=== PATIENT | male | born 1950 | race Asian ===

== ENCOUNTER 2022-01-03 03:44 | Inpatient (IN) | payer MEDICAID ==
[~2022-01-03] VITALS: Ht 160 cm; Wt 78.0 kg
--- NOTE | 2022-01-03 04:12 | NUR ---
BIBRA C/O BILAT LOWER EXT NUMBNESS AND SWOLLEN FEET. PT AWAKE AND ALERT BUT POOR HISTORIAN. LOWER EXTREMITY EDEMA NOTED BILATERALY. PLACED ON MONITOR AND V/S WNL.PT AFEBRILE AT TRIAGE. MD WAS AT BEDSIDE FOR EVAL.
--- NOTE | 2022-01-03 04:17 | NUR ---
20G IV STARTED AT [facility]. BLOOD DRAWN AND SENT TO LAB
--- NOTE | 2022-01-03 04:20 | NUR ---
EMT AT BEDSIDE FOR EKG
--- NOTE | 2022-01-03 04:25 | NUR ---
XRAY AT BEDSIDE
[2022-01-03] MEDS ORDERED: IV NS 0.9% 1,000 ML BAG IV ONE (04:30)
[2022-01-03 04:44] LABS: BASOPHILS % (AUTO) 0.5 % (0.0-2.0); EOSINOPHILS % (AUTO) 2.8 % (0.0-6.0); HEMATOCRIT 40 % (39-51); HEMOGLOBIN 13.4 g/dL (13.5-17.5); LYMPHOCYTES # (AUTO) 1.9 K/uL (0.8-4.8); LYMPHOCYTES % (AUTO) 25.6 % (20.0-44.0); MEAN CORPUSCULAR HGB CONC 33 g/dl (31.0-36.0); MEAN CORPUSCULAR VOLUME 93 fL (80-96); MONOCYTES # (AUTO) 0.6 K/uL (0.1-1.30); MONOCYTES % (AUTO) 8.4 % (2.0-12.0); NEUTROPHILS # (AUTO) 4.7 K/uL (1.8-8.9); NEUTROPHILS % (AUTO) 62.7 % (43.0-81.0); PLATELET COUNT (AUTO) 231 K/uL (150-450); WHITE BLOOD COUNT (AUTO) 7.4 K/uL (4.3-11.0)
[2022-01-03 04:50] LABS: CALCIUM, SERUM 9.4 mg/dL (8.5-10.1); CARBON DIOXIDE 30 mmol/L (21-32); CHLORIDE 104 mmol/L (98-107); GLUCOSE 113 mg/dL (74-106); POTASSIUM 4.6 mmol/L (3.5-5.1); SODIUM SERUM 141 mmol/L (136-145); UREA NITROGEN, BLOOD 14 mg/dL (7-18)
[2022-01-03 04:54] LABS: ACETAMINOPHEN < 10 ug/ml (10-30)
--- NOTE | 2022-01-03 04:58 | NUR ---
URINE SENT TO LAB
[2022-01-03 05:03] LABS: ALANINE AMINOTRANSFERASE 31 U/L (12-78); ALBUMIN 3.9 g/dL (3.4-5.0); ALKALINE PHOSPHATASE 106 U/L (46-116); ASPARTATE AMINOTRANSFERASE 24 U/L (15-37); BILIRUBIN,DIRECT 0.1 mg/dL (0.0-0.2); BILIRUBIN,TOTAL 0.3 mg/dL (0.2-1.0); TOTAL PROTEIN, SERUM 7.6 g/dL (6.4-8.2)
[2022-01-03 05:30] LABS: THYROID STIMULATING HORMONE 2.634 uIU/mL (0.358-3.74)
--- NOTE | 2022-01-03 05:33 | NUR ---
COVID SWAB SENT TO LAB
[2022-01-03 05:54] LABS: BILIRUBIN,URINE NEGATIVE (NEGATIVE); COLOR,URINE YELLOW (YELLOW); LEUKOCYTE ESTERASE ,URINE NEGATIVE (NEGATIVE); NITRITE, URINE NEGATIVE (NEGATIVE); PROTEIN,URINE NEGATIVE (NEGATIVE); UGLUCOSE NEGATIVE (NEGATIVE); UROBILINOGEN,URINE 0.2 EU/dL (0.2)
[2022-01-03] MEDS ORDERED: CLINDAMYCIN 600 MG in IV D5W 100 ML IV ONE (06:00)
[2022-01-03] MEDS ORDERED: CLINDAMYCIN 900 MG/6 ML VIAL ONE (06:05)
[2022-01-03] MEDS ORDERED: Z GUARD REMEDY 4 OZ OINT TP PRN (08:30)
[2022-01-03] MEDS ORDERED: ONDANSETRON HCL/PF 4 MG/2 ML VIAL IVP PRN (08:30)
[2022-01-03] MEDS ORDERED: ACETAMINOPHEN 325 MG TABLET PO PRN (08:30)
[2022-01-03] MEDS ORDERED: MAGNESIUM HYDROXIDE 30 ML UDC PO PRN (08:30)
[2022-01-03] MEDS ORDERED: HYDROCODONE/APAP 5/325MG TABLET PO PRN (08:30)
--- NOTE | 2022-01-03 08:45 | NUR ---
claude hansen at bedside
[2022-01-03] MEDS: CEFTRIAXONE 2 G in IV D5W 100 ML IV SCH (09:00)
[2022-01-03] MEDS ORDERED: VANCOMYCIN 1.25 GM in IV D5W 250 ML IV ONE (09:00)
--- NOTE | 2022-01-03 09:46 | NUR ---
room ready 327-2
--- NOTE | 2022-01-03 09:57 | NUR ---
report given to sadaf BERKOWITZ , pt. ok to transfer
--- NOTE | 2022-01-03 11:08 | NUR ---
PT MOVED TO ROOM SAFELY WITH VANCOMICIN INFUSING AT 125ML/HR NURSE MADE AWARE
--- NOTE | 2022-01-03 11:15 | NUR ---
RN MS NOTES RECEIVED PT FROM E.R. STAFF VIA IZAIAH, PT IS AWAKE, ALERT AND ORIENTED, NOT IN PAIN AT THIS TIME, NOT IN DISTRESS, ON ROOM AIR, ROOM SET UP ORIENTATION PROVIDED TO PT, VERBALIZED UNDERSTANDING, NOTED WOUNDS AND SWELLING ON BLE'S, NEEDS ATTENDED.
--- NOTE | 2022-01-03 12:00 | NUR ---
RN MS NOTES PT SEEN AND EXAMINED BY DR. LOBO, PLAN OF CARE DISCUSSED WITH PT, VERBALIZED UNDERSTANDING, ORDERS GIVEN, NOTED AND CARRIED OUT, PER PT HE WANTS TO BE DNR/DNI, MD INFORMED, CODE STATUS ORDERED.
--- NOTE | 2022-01-03 13:00 | NUR ---
RN MS NOTES PT REFUSED WOUND DRESSING AND STATED THAT HE IS OK LIKE THAT.
--- NOTE | 2022-01-03 18:58 | NUR ---
RN MS NOTES PT IN BED, RESTING, NO COMPLAINT OF PAIN, NOT IN DISTRESS, PT ABLE TO USE WALKER SAFELY, PT ABLE TO FOLLOW CUES, REMINDED PT TO BE CAREFUL WHEN USING WALKER, ASSISTED WITH URINAL USE, ALL NEEDS ATTENDED.
--- NOTE | 2022-01-03 19:55 | NUR ---
RN OPENING NOTES; PT RECEIVED IN BED AAOX4 ABLE TO MAKE NEEDS KNOWN,ON RM AIR MARCUS WELL,NO SIGN SOB/DISTRESS NOTED,NO COMPLAIN FOR PAIN/DISCOMFORT AT THIS TIME,IV ACCESS ON RAC 20G PATENT AND INTACT,SAFETY MEASURE IN PLACE,CALL LIGHT WITHIN REACH,WILL CONTINUE TO MONITOR.
[2022-01-03 20:00] VITALS: BP 120/64
[2022-01-03] MEDS: VANCOMYCIN 1 GM in IV D5W 250ml IV SCH (20:18)
--- NOTE | 2022-01-04 06:05 | NUR ---
RN CLOSING NOTE; PT IN BED AAOX3,MARCUS WELL ON RM AIR NO SIGN SOB/DISTRESS NOTED,NO COMPLAIN FOR PAIN/DISCOMFORT DURING SHIFT,DUE MEDS GIVEN ORDER,ALL NEEDS ATTENDED,,IV ACCESS ON RT WRIST 18G INTACT AND PATENT,SAFETY MEASURE IN PLACE,CALL LIGHT WITHIN REACH,WILL ENDORSED TO NEXT SHIFT.
[2022-01-04 07:00] VITALS: BP 127/75
[2022-01-04 07:54] LABS: CALCIUM, SERUM 8.6 mg/dL (8.5-10.1); CREATININE 0.8 mg/dL (0.6-1.3); MAGNESIUM 2.6 mg/dL (1.8-2.4); PHOSPHORUS 4.3 mg/dL (2.5-4.9); POTASSIUM 4.1 mmol/L (3.5-5.1)
--- NOTE | 2022-01-04 08:07 | NUR ---
RN OPENING NOTES; PT RECEIVED IN BED AAOX4 ABLE TO MAKE NEEDS KNOWN, ON RM, WITH NO SIGN SOB/DISTRESS NOTED. NO COMPLAIN OF PAIN/DISCOMFORT AT THIS TIME,IV ACCESS ON RAC 20G PATENT AND INTACT,SAFETY MEASURE IN PLACE,CALL LIGHT WITHIN REACH,WILL CONTINUE TO MONITOR.
--- NOTE | 2022-01-04 08:15 | NUR ---
MS RN NOTES: ENDORSED TO KYM BERKOWITZ FOR VANESA.
[2022-01-04] MEDS: CEFTRIAXONE 2 G in IV D5W 100 ML IV SCH (08:51)
[2022-01-04] MEDS: PANTOPRAZOLE 40 MG TABLET.DR PO SCH (09:02)
[2022-01-04 09:11] LABS: BASOPHILS % (AUTO) 0.3 % (0.0-2.0); EOSINOPHILS % (AUTO) 2.4 % (0.0-6.0); HEMATOCRIT 39 % (39-51); HEMOGLOBIN 13.1 g/dL (13.5-17.5); LYMPHOCYTES # (AUTO) 1.6 K/uL (0.8-4.8); LYMPHOCYTES % (AUTO) 20.5 % (20.0-44.0); MEAN CORPUSCULAR HGB CONC 33 g/dl (31.0-36.0); MEAN CORPUSCULAR VOLUME 95 fL (80-96); MONOCYTES # (AUTO) 0.7 K/uL (0.1-1.30); MONOCYTES % (AUTO) 8.4 % (2.0-12.0); NEUTROPHILS # (AUTO) 5.5 K/uL (1.8-8.9); NEUTROPHILS % (AUTO) 68.4 % (43.0-81.0); PLATELET COUNT (AUTO) 235 K/uL (150-450); RED BLOOD CELL COUNT(AUTO) 4.15 MIL/uL (4.5-6.0); WHITE BLOOD COUNT (AUTO) 8.1 K/uL (4.3-11.0)
[2022-01-04] MEDS: VANCOMYCIN 1 GM in IV D5W 250ml IV SCH ×2 (10:54→21:46)
--- NOTE | 2022-01-04 19:00 | NUR ---
MS RN CLOSING NOTES PATIENT LAYING IN BED, A/O X 4, ABLE TO MAKE NEEDS KNOWN, TOLERATING WELL ON ROOM AIR WITH NO S/S RESPIRATORY DISTRESS. NO COMPLAINTS OF PAIN OR DISCOMFORT. R AC # 20 G SL CLEAN, INTACT, AND FLUSHING WELL. SAFETY MEASURES IN PLACE: BED IN LOWEST LOCKED POSITION, SIDE RAILS UP X 2, CALL LIGHT WITHIN REACH. ALL NEEDS MET. WILL ENDORSE TO CARPET MEASURER FOR VANESA.
--- NOTE | 2022-01-04 19:10 | NUR ---
MS RN OPENING NOTES RECEIVED PT IN BED WATCHING TV. PATIENT HAS AN IV ACCESS AT HIS RIGHT AC,. FLUSHED WITH NS, LEAKING. REMOVED THE CATHETER, AND INSERT A NEW IV ACCESS AT HIS LEFT HAND, #20G . PATIENT IS ON RA, TOLERATES WELL. NO S/S OF SOB OR RESPIRATORY DISTRESS. NEW IV SITE IS CLEAN , DRY, AND INTACT. SAFETY MEASURE IN PLACE: BED IN LOWEST POSITION, LOCKED; BED ALARM ACTIVATED, CALL HARO IN REACH, BED SIDE TABLE AND WATER ARE IN REACH. WILL CMONITOR PATIENT'S CONDITION AND PROVIDE PATIENT'S NEEDS.
[2022-01-04 20:00] VITALS: BP 114/56
[2022-01-05 07:00] VITALS: BP 120/75
--- NOTE | 2022-01-05 07:00 | NUR ---
MS RN OPENING NOTES PATIENT LAYING IN BED, A/O X 3, ABLE TO MAKE NEEDS KNOWN, TOLERATING WELL ON ROOM AIR WITH NO S/S RESPIRATORY DISTRESS. L HAND # 20 G SL CLEAN, INTACT, AND FLUSHING WELL. SAFETY MEASURES IN PLACE: BED IN LOWEST LOCKED POSITION, SIDE RAILS UP X 2, CALL LIGHT WITHIN REACH. WILL CONTINUE TO MONITOR.
[2022-01-05 07:07] LABS: BASOPHILS % (AUTO) 0.2 % (0.0-2.0); EOSINOPHILS % (AUTO) 1.7 % (0.0-6.0); HEMATOCRIT 39 % (39-51); LYMPHOCYTES # (AUTO) 1.5 K/uL (0.8-4.8); LYMPHOCYTES % (AUTO) 17.8 % (20.0-44.0); MEAN CORPUSCULAR HGB CONC 33 g/dl (31.0-36.0); MEAN CORPUSCULAR VOLUME 94 fL (80-96); MONOCYTES # (AUTO) 0.8 K/uL (0.1-1.30); NEUTROPHILS # (AUTO) 6.1 K/uL (1.8-8.9); NEUTROPHILS % (AUTO) 71.3 % (43.0-81.0); PLATELET COUNT (AUTO) 230 K/uL (150-450); RED BLOOD CELL COUNT(AUTO) 4.14 MIL/uL (4.5-6.0); WHITE BLOOD COUNT (AUTO) 8.6 K/uL (4.3-11.0)
[2022-01-05 07:12] LABS: BILIRUBIN,TOTAL 0.5 mg/dL (0.2-1.0); CALCIUM, SERUM 8.7 mg/dL (8.5-10.1); MAGNESIUM 2.3 mg/dL (1.8-2.4); PHOSPHORUS 4.3 mg/dL (2.5-4.9); POTASSIUM 4.1 mmol/L (3.5-5.1); TOTAL PROTEIN, SERUM 6.5 g/dL (6.4-8.2)
--- NOTE | 2022-01-05 07:25 | NUR ---
MS RN CLOSING NOTES PT IS IN BED SLEEPING. PATIENT IS ON RA, TOLERATES WELL. NO S/S OF SOB OR RESPIRATORY DISTRESS. IV ACCESS IS ON LEFT HAND, #20G, SL. IV SITE IS CLEAN , DRY, AND INTACT. SAFETY MEASURE IN PLACE: BED IN LOWEST POSITION, LOCKED; BED ALARM ACTIVATED, CALL HARO IN REACH, BED SIDE TABLE AND WATER ARE IN REACH. WILL ENDORSE NEXT SHFT NURSE FOR CONTINUING PATIENT CARE.
[2022-01-05] MEDS: THERAHONEY GEL 1.5 OZ TUBE TP SCH (08:52)
[2022-01-05] MEDS: PANTOPRAZOLE 40 MG TABLET.DR PO SCH (08:52)
[2022-01-05] MEDS: CEFTRIAXONE 2 G in IV D5W 100 ML IV SCH (08:52)
[2022-01-05 12:00] VITALS: BP 100/65
[2022-01-05 16:00] VITALS: BP 100/65
[2022-01-05] MEDS: risperiDONE 1 MG TABLET PO SCH (16:12)
--- NOTE | 2022-01-05 19:00 | NUR ---
MS RN CLOSING NOTES PATIENT LAYING IN BED, A/O X 3, ABLE TO MAKE NEEDS KNOWN, TOLERATING WELL ON ROOM AIR WITH NO S/S RESPIRATORY DISTRESS. L HAND # 20 G SL INTACT AND FLUSHING WELL. SAFETY MEASURES IN PLACE: BED IN LOWEST LOCKED POSITION, SIDE RAILS UP X 2, CALL LIGHT WITHIN REACH. ALL NEEDS MET. WILL ENDORSE TO EDGE DYER FOR VANESA.
--- NOTE | 2022-01-05 19:30 | NUR ---
RN OPENING NOTE PATIENT IN BED, SITTING UP. PATIENT IS ABLE TO MAKE NEEDS KNOWN A/OX 2-3 AT THIS TIME, PATIENT IS ABLE TO MAKE NEEDS KNOWN. PATIENT'S TAYLOR FEET WRAPPED IN DRESSING, C/D/I. PATIENT IS ON RA, TOLERATING WELL, NO SOB NOTED. PATIENT'S L HAND 22 G IV ACCESS INFILTRATED, WILL INSERT NEW IV ACCESS. PATIENT DOES NOT REPORT ANY PAIN AT THIS TIME. PATIENT NOT IN ANY APPARENT DISTRESS. SAFETY MEASURES IN PLACE: BED LOCKED AND IN LOWEST POSITION, CALL LIGHT WITHIN REACH, SIDE RAILS UP. WILL MONITOR PATIENT CLOSELY.
--- NOTE | 2022-01-05 20:30 | NUR ---
R HAND 22 G INSERTED FLUSHING WELL WITH NS.
[2022-01-05] MEDS: VANCOMYCIN 0.75 GM in IV D5W 250 ML IV SCH (20:38)
[2022-01-05 20:52] VITALS: BP 102/59
[2022-01-06 05:11] VITALS: BP 113/67
--- NOTE | 2022-01-06 05:27 | NUR ---
PATIENT REFUSING DRESSING ON TAYLOR FEET TO BE CHANGED AT THIS TIME, STATES "AFTER EATING BREAKFAST YOU CAN CHANGE". INFORMED PATIENT THAT WE NEED TO TAKE PHOTOS OF HIS WOUNDS TO SEE THE WOUND'S PROGRESS AND THAT WE NEED TO CHECK THE REST OF HIS BODY FOR ANY SKIN ISSUES. PATIENT STILL REFUSING SAYING "NO NO NO, IT'S OKAY, LATER". INFORMED PATIENT THAT DAY SHIFT NURSE WOULD HAVE TO DO DRESSING SINCE I WOULD NO LONGER BE WORKING. PATIENT UNDERSTOOD.
[2022-01-06 07:21] LABS: BASOPHILS % (AUTO) 0.2 % (0.0-2.0); EOSINOPHILS % (AUTO) 2.1 % (0.0-6.0); HEMATOCRIT 38 % (39-51); LYMPHOCYTES # (AUTO) 1.1 K/uL (0.8-4.8); LYMPHOCYTES % (AUTO) 14.2 % (20.0-44.0); MEAN CORPUSCULAR HGB CONC 34 g/dl (31.0-36.0); MEAN CORPUSCULAR VOLUME 94 fL (80-96); MONOCYTES # (AUTO) 0.6 K/uL (0.1-1.30); MONOCYTES % (AUTO) 8.2 % (2.0-12.0); NEUTROPHILS # (AUTO) 5.9 K/uL (1.8-8.9); NEUTROPHILS % (AUTO) 75.3 % (43.0-81.0); PLATELET COUNT (AUTO) 223 K/uL (150-450); RED BLOOD CELL COUNT(AUTO) 4.08 MIL/uL (4.5-6.0); WHITE BLOOD COUNT (AUTO) 7.8 K/uL (4.3-11.0)
[2022-01-06 07:30] LABS: CALCIUM, SERUM 8.5 mg/dL (8.5-10.1); CREATININE 0.9 mg/dL (0.6-1.3); MAGNESIUM 2.5 mg/dL (1.8-2.4); PHOSPHORUS 4.1 mg/dL (2.5-4.9); POTASSIUM 4.1 mmol/L (3.5-5.1)
--- NOTE | 2022-01-06 07:34 | NUR ---
RN CLOSING NOTE PATIENT BROUGHT TO BSC DURING CHANGE OF SHIFT, X1 BM. REMINDED PATIENT REGARDING FALL SAFETY MEASURES AND NOT TO GET UP BY HIMSELF. PATIENT IS ABLE TO MAKE NEEDS KNOWN A/OX 2-3 AT THIS TIME. PATIENT'S TAYLOR FEET WRAPPED IN DRESSING, C/D/I. INFORMED DAY SHIFT RN REGARDING CHANGING THE DRESSINGS. PATIENT IS ON RA, TOLERATING WELL, NO SOB NOTED. PATIENT'S R HAND 22 G IV ACCESS PATENT AND INTACT. PATIENT DOES NOT REPORT ANY PAIN AT THIS TIME. PATIENT NOT IN ANY APPARENT DISTRESS. SAFETY MEASURES IN PLACE: BED LOCKED AND IN LOWEST POSITION, CALL LIGHT WITHIN REACH, SIDE RAILS UP. ALL NEEDS MET AND ATTENDED. ALL ORDERS CARRIED OUT. ENDORSED TO DAY SHIFT NURSE FOR VANESA.
[2022-01-06 08:36] VITALS: BP 106/70
[2022-01-06] MEDS: PANTOPRAZOLE 40 MG TABLET.DR PO SCH (09:13)
[2022-01-06] MEDS: risperiDONE 1 MG TABLET PO SCH ×2 (09:16→16:09)
--- NOTE | 2022-01-06 09:27 | NUR ---
WOUND CARE CONSULT: RECEIVED CONSULT FOR LOWER EXTREMITY WOUND, PRESENT ON ADMISSION. PT FOLLOWED BY PODIATRY. WILL DEFER TO DPM FOR WOUND TREATMENT PLAN. DISCUSSED SKIN PROTECTION WITH NURSING STAFF. WILL SEE PRN.
[2022-01-06] MEDS: VANCOMYCIN 0.75 GM in IV D5W 250 ML IV SCH ×2 (10:01→10:18)
[2022-01-06] MEDS: THERAHONEY GEL 1.5 OZ TUBE TP SCH (10:18)
[2022-01-06] MEDS: CEFTRIAXONE 2 G in IV D5W 100 ML IV SCH (10:32)
--- NOTE | 2022-01-06 16:11 | NUR ---
patient refused for wound care, patient stated one more day to have it change.
[2022-01-06 16:20] VITALS: BP 89/46
--- NOTE | 2022-01-06 19:35 | NUR ---
MS RN OPENING NOTE RECEIVED PATIENT IN BED, SITTING UP. PATIENT IS A/O X 3, ABLE TO MAKE NEEDS KNOWN. PATIENT'S TAYLOR FEET WRAPPED IN DRESSING, C/D/I. PATIENT IS ON RA, TOLERATING WELL, NO SOB NOTED. IV ACCESS TO RIGHT WRIST 22 G, INTACT, AND PATENT. PATIENT DOES NOT REPORT ANY PAIN AT THIS TIME. PATIENT NOT IN ANY APPARENT DISTRESS. SAFETY MEASURES IN PLACE: BED LOCKED AND IN LOWEST POSITION, CALL LIGHT WITHIN REACH, SIDE RAILS UP X2. WILL CONTINUE TO MONITOR PATIENT.
[2022-01-06 20:00] VITALS: BP 114/63
--- NOTE | 2022-01-06 20:35 | NUR ---
RN CLOSING NOTE PATIENT A/O X 2-3, ABLE TO MAKE NEEDS KNOWN. PATIENT'S FEET WRAPPED IN DRESSING, PATIENT'S R HAND 22 G IV ACCESS PATENT AND INTACT. PATIENT DOES NOT REPORT ANY PAIN AT THIS TIME. PATIENT NOT IN ANY APPARENT DISTRESS. SAFETY MEASURES IN PLACE: BED LOCKED AND IN LOWEST POSITION, CALL LIGHT WITHIN REACH, SIDE RAILS UP. APPROACHED PATIENT A COUPLE OF TIMES TO CHANGE DRESSING HOWEVER THE PATIENT KEEPS ON REFUSING. ALL NEEDS MET AND ATTENDED. ALL ORDERS CARRIED OUT. ENDORSED TO DAY NIGHT NURSE FOR VANESA.
--- NOTE | 2022-01-07 07:25 | NUR ---
MS RN CLOSING NOTE LEFT PATIENT IN BED, AWAKE. PATIENT IS A/O X 3, ABLE TO MAKE NEEDS KNOWN. PATIENT'S TAYLOR FEET WRAPPED IN DRESSING, C/D/I. PATIENT IS ON RA, TOLERATING WELL, NO SOB NOTED. IV ACCESS TO RIGHT WRIST 22 G, INTACT, AND PATENT. PATIENT DOES NOT REPORT ANY PAIN AT THIS TIME. PATIENT NOT IN ANY APPARENT DISTRESS. SAFETY MEASURES IN PLACE: BED LOCKED AND IN LOWEST POSITION, CALL LIGHT WITHIN REACH, SIDE RAILS UP X2. ENDORSED PATIENT TO AM SHIFT NURSE FOR VANESA. .
--- NOTE | 2022-01-07 07:40 | NUR ---
MS RN OPENING NOTE RECEIVED PATIENT IN BED, A/O X 3, ABLE TO MAKE NEEDS KNOWN. PATIENT'S TAYLOR FEET WRAPPED IN NORMAN DRESSING, C/D/I, PATIENT REFUSED WOUND TREATMENT PER NIGHT NURSE, PT INFORMED THAT HE IS OKAY TO GET IT THIS MORNING, ON RA, TOLERATING WELL, NO SOB NOTED. IV ACCESS TO RIGHT WRIST 22 G, INTACT, AND PATENT. PATIENT DENIES ANY PAIN AT THIS TIME NO DISTRESS NOTED, SAFETY MEASURES IN PLACE: BED LOCKED AND IN LOWEST POSITION, CALL LIGHT WITHIN REACH, SIDE RAILS UP X2. WILL CONTINUE TO MONITOR PATIENT
[2022-01-07 07:45] LABS: CALCIUM, SERUM 8.6 mg/dL (8.5-10.1); CREATININE 0.9 mg/dL (0.6-1.3); POTASSIUM 4.2 mmol/L (3.5-5.1)
[2022-01-07 08:00] VITALS: BP 114/74
[2022-01-07] MEDS: PANTOPRAZOLE 40 MG TABLET.DR PO SCH (08:14)
[2022-01-07] MEDS: risperiDONE 1 MG TABLET PO SCH ×2 (08:22→17:06)
[2022-01-07] MEDS: CEFTRIAXONE 2 G in IV D5W 100 ML IV SCH (08:26)
[2022-01-07] MEDS: VANCOMYCIN 0.75 GM in IV D5W 250 ML IV SCH ×2 (09:20→20:30)
[2022-01-07] MEDS: THERAHONEY GEL 1.5 OZ TUBE TP SCH (09:20)
--- NOTE | 2022-01-07 10:00 | NUR ---
RN NOTES PATIENT PULLED IV LINE, NO ACTIVE BLEEDING NOTED.
--- NOTE | 2022-01-07 11:23 | NUR ---
Advanced Directive: SW was notified by pt.'s partner, Deni Ruiz [phone] that pt. would like to complete Advanced Directive. SW was notified by partner that the pt. is primarily Divehi speaking. SW met with pt. at bedside. SW used roll out manager: [phone]. However, client stated to me and to the roll out manager that he would like to answer questions in Serbian and roll out manager to only assist as needed. The pt. is alert & oriented x 4 and makes good eye contact. The pt. confirmed that his partner is Deni Ruiz [phone] who was also at bedside. SW explained the purpose of an advanced directive how to complete it and that it must be signed by two witnesses or a public notary. SW provided number for mobile notary. Pt. expressed understanding. Patient stated that he does not want to fill out an advanced directive at this time. SW provided advanced healthcare directive to pt. and told him he can take his time to read it over decide if that is something he would like to complete and who he would want to make decisions on his behalf in the event that he can no longer make decisions for himself. Pt. nodded "yes". SW asked if he or his partner had any questions and both nodded "no". Partner stated that the reason for the advanced directive was so that he would receive updates regarding his health condition. SW as pt. if he would like his partner to be informed of his medical information as it is confidential but if he gives verbal consent we can document this. Pt. stated "yes". Patient's partner met with SW outside of the room and stated that he was concerned wether pt. understood everything discussed. Per Deni, he believe the client is prideful and does not want to use impregnating helper as he wants to be independent with communication. SW reminded Deni that the pt. declined to use roll out manager services and SW must respect pt.'s self determination. Deni is and cannot speak Divehi. SW asked if Deni wanted SW to call roll out manager again and Deni declined. SW told Deni that pt. answered questions correctly so the pt. is able to understand Serbian to some degree. SW encouraged Deni and pt.'s family to review advanced directive with client. Deni was agreeable. SW will be available as needed.
--- NOTE | 2022-01-07 11:30 | NUR ---
RN NOTES - TWIN MAIN PARTNER IS WITH CRISTINA AT BEDSIDE, CRISTINA IS WORKING WITH THE ADVANCE DIRECTIVE DOCUMENTS, CRISTINA MENTIONED THAT IT TWIN IS OKAY TO BE THE MAIN ELEVATOR OPERATOR SERVICE PT GAVE CONSENTS. WILL ENDORSE TO SENIOR CYBER SECURITY ANALYST.
[2022-01-07 16:00] VITALS: BP 106/60
--- NOTE | 2022-01-07 17:47 | NUR ---
RN NOTES - IV LINE INSERTED ON LEFT FOREARM G#20, PATENT, INTACT, FLUSHING WELL.
--- NOTE | 2022-01-07 19:20 | NUR ---
MS RN CLOSING NOTE PATIENT IN BED, A/O X 3, ABLE TO MAKE NEEDS KNOWN. PATIENT'S BILATERAL FEET WRAPPED IN NORMAN DRESSING, C/D/I, WOUND TREATMENT PROVIDED. ON RA, TOLERATING WELL, NO SOB NOTED. IV ACCESS TO LEFT FOREARM 20 G, SL, INTACT, AND PATENT. PATIENT DENIES ANY PAIN AT THIS TIME NO DISTRESS NOTED. ALL NEEDS MET, ALL DUE MEDS GIVEN, SAFETY MEASURES MAINTAINED: BED LOCKED AND IN LOWEST POSITION, CALL LIGHT WITHIN REACH, SIDE RAILS UP X2. ENDORSED TO VINEYARD TENDER NURSE.
--- NOTE | 2022-01-07 19:53 | NUR ---
RN OPENING NOTES; PT RECEIVED IN BED AAOX4 ABLE TO MAKE NEEDS KNOWN,ON RM AIR MARCUS WELL,NO SIGN SOB/DISTRESS NOTED,NO COMPLAIN FOR PAIN/DISCOMFORT AT THIS TIME,IV ACCESS ON RAC 18G PATENT AND INTACT,SAFETY MEASURE IN PLACE,CALL LIGHT WITHIN REACH,WILL CONTINUE TO MONITOR.
[2022-01-07 20:00] VITALS: BP 105/55
--- NOTE | 2022-01-08 06:24 | NUR ---
RN CLOSING NOTE; PT IN BED AAOX3,MARCUS WELL ON RM AIR NO SIGN SOB/DISTRESS NOTED,NO COMPLAIN FOR PAIN/DISCOMFORT DURING SHIFT,DUE MEDS GIVEN ORDER,ALL NEEDS ATTENDED,,IV ACCESS ON LT WRIST 20G INTACT AND PATENT,SAFETY MEASURE IN PLACE,CALL LIGHT WITHIN REACH,WILL ENDORSED TO NEXT SHIFT.
[2022-01-08 07:20] LABS: BASOPHILS % (AUTO) 0.2 % (0.0-2.0); HEMATOCRIT 39 % (39-51); HEMOGLOBIN 12.8 g/dL (13.5-17.5); LYMPHOCYTES # (AUTO) 1.3 K/uL (0.8-4.8); LYMPHOCYTES % (AUTO) 19.5 % (20.0-44.0); MEAN CORPUSCULAR HGB CONC 33 g/dl (31.0-36.0); MEAN CORPUSCULAR VOLUME 94 fL (80-96); MONOCYTES # (AUTO) 0.6 K/uL (0.1-1.30); MONOCYTES % (AUTO) 8.8 % (2.0-12.0); NEUTROPHILS # (AUTO) 4.5 K/uL (1.8-8.9); NEUTROPHILS % (AUTO) 68.5 % (43.0-81.0); PLATELET COUNT (AUTO) 243 K/uL (150-450); RED BLOOD CELL COUNT(AUTO) 4.12 MIL/uL (4.5-6.0); WHITE BLOOD COUNT (AUTO) 6.5 K/uL (4.3-11.0)
[2022-01-08 08:00] VITALS: BP 143/56
[2022-01-08 08:18] LABS: CALCIUM, SERUM 9.1 mg/dL (8.5-10.1); MAGNESIUM 2.4 mg/dL (1.8-2.4); PHOSPHORUS 3.8 mg/dL (2.5-4.9); POTASSIUM 4.1 mmol/L (3.5-5.1)
[2022-01-08] MEDS: THERAHONEY GEL 1.5 OZ TUBE TP SCH (09:00)
[2022-01-08] MEDS: CEFTRIAXONE 2 G in IV D5W 100 ML IV SCH (09:35)
[2022-01-08] MEDS: VANCOMYCIN 0.75 GM in IV D5W 250 ML IV SCH (09:36)
[2022-01-08] MEDS: PANTOPRAZOLE 40 MG TABLET.DR PO SCH (09:36)
[2022-01-08] MEDS: risperiDONE 1 MG TABLET PO SCH ×2 (09:36→17:52)
[2022-01-08] MEDS: ZOSYN IVPB 3.375 G in IV D5W 50ml IV SCH ×2 (13:00→19:09)
[2022-01-08 16:00] VITALS: BP 119/64
[2022-01-08 20:00] VITALS: BP 130/56
[2022-01-09] MEDS: ZOSYN IVPB 3.375 G in IV D5W 50ml IV SCH ×4 (00:26→18:12)
[2022-01-09 07:04] LABS: BASOPHILS % (AUTO) 0.3 % (0.0-2.0); HEMATOCRIT 38 % (39-51); HEMOGLOBIN 12.5 g/dL (13.5-17.5); LYMPHOCYTES # (AUTO) 1.2 K/uL (0.8-4.8); LYMPHOCYTES % (AUTO) 19.9 % (20.0-44.0); MEAN CORPUSCULAR HGB CONC 33 g/dl (31.0-36.0); MEAN CORPUSCULAR VOLUME 94 fL (80-96); MONOCYTES # (AUTO) 0.5 K/uL (0.1-1.30); MONOCYTES % (AUTO) 7.8 % (2.0-12.0); NEUTROPHILS # (AUTO) 4.2 K/uL (1.8-8.9); PLATELET COUNT (AUTO) 239 K/uL (150-450); RED BLOOD CELL COUNT(AUTO) 4.02 MIL/uL (4.5-6.0); WHITE BLOOD COUNT (AUTO) 6.1 K/uL (4.3-11.0)
[2022-01-09 08:04] LABS: CREATININE 1.2 mg/dL (0.6-1.3); MAGNESIUM 2.4 mg/dL (1.8-2.4); PHOSPHORUS 4.7 mg/dL (2.5-4.9); POTASSIUM 4.2 mmol/L (3.5-5.1)
[2022-01-09] MEDS: risperiDONE 1 MG TABLET PO SCH ×2 (08:23→17:53)
[2022-01-09] MEDS: PANTOPRAZOLE 40 MG TABLET.DR PO SCH (08:23)
[2022-01-09 08:30] VITALS: BP 114/68
[2022-01-09] MEDS: THERAHONEY GEL 1.5 OZ TUBE TP SCH (08:47)
--- NOTE | 2022-01-09 13:15 | NUR ---
SS note: CRISTINA provided form for release & disclosure of health information to the pt. and his partner, Deni Ruiz. CRISTINA notified them that pt. must agree and sign form for [facility] to release the medical records. CRISTINA called medical records and stated they would need a copy of the pt.'s ID and Deni stated they would provide the signed release form and copy of ID. Noted. SW will be available as needed.
[2022-01-09 16:22] VITALS: BP 108/50
--- NOTE | 2022-01-09 19:00 | NUR ---
RN NOTE PATIENT IN BED, ON SEMI BULLOCK'S, AO X 4, IN NO ACUTE DISTRESS, SATURATION AT 95% ON ROOM AIR, HR IS 91. IV LINE AT L HAND 22G PATENT AND FLUSHING WELL, NO S/S OF INFECTION OR INFILTRATION, SALINE LOCKED. PATIENT IS CONTINENT AND ABLE TO USE URINAL, NOTED A CLEAR, YELLOW OUTPUT. WOUND DRESSING AT B LEGS DRY AND INTACT. SAFETY MEASURES IN PLACE, HOB ELEVATED, BED IS LOCKED AND AT LOWEST POSITION, CALL LIGHT WITHIN REACH OF PATIENT. WILL CONT TO MONITOR AND REASSESS.
[2022-01-09 20:00] VITALS: BP 117/64
--- NOTE | 2022-01-09 20:01 | NUR ---
RN CLOSING NOTE PT IN BED AOX3, ON RM AIR NO SIGN SOB/DISTRESS NOTED,NO COMPLAIN FOR PAIN/DISCOMFORT DURING SHIFT,DUE MEDS GIVEN ORDER,ALL NEEDS ATTENDED. WOUND CARE DONE. DUE MEDS GIVEN. IV ACCESS ON LT HAND 22G INTACT AND PATENT,SAFETY MEASURE IN PLACE,CALL LIGHT WITHIN REACH,WILL ENDORSED TO NEXT SHIFT.
[2022-01-09 20:42] VITALS: BP 117/64
[2022-01-10] MEDS: ZOSYN IVPB 3.375 G in IV D5W 50ml IV SCH ×4 (00:11→18:08)
[2022-01-10 04:00] VITALS: BP 117/64
[2022-01-10] MEDS: PANTOPRAZOLE 40 MG TABLET.DR PO SCH (06:24)
[2022-01-10 06:52] LABS: BASOPHILS % (AUTO) 0.4 % (0.0-2.0); EOSINOPHILS % (AUTO) 3.5 % (0.0-6.0); HEMATOCRIT 37 % (39-51); HEMOGLOBIN 12.4 g/dL (13.5-17.5); LYMPHOCYTES # (AUTO) 1.2 K/uL (0.8-4.8); LYMPHOCYTES % (AUTO) 20.3 % (20.0-44.0); MEAN CORPUSCULAR HGB CONC 34 g/dl (31.0-36.0); MEAN CORPUSCULAR VOLUME 93 fL (80-96); MONOCYTES # (AUTO) 0.4 K/uL (0.1-1.30); MONOCYTES % (AUTO) 7.5 % (2.0-12.0); NEUTROPHILS % (AUTO) 68.3 % (43.0-81.0); PLATELET COUNT (AUTO) 236 K/uL (150-450); RED BLOOD CELL COUNT(AUTO) 3.96 MIL/uL (4.5-6.0); WHITE BLOOD COUNT (AUTO) 5.8 K/uL (4.3-11.0)
[2022-01-10 07:28] LABS: MAGNESIUM 2.5 mg/dL (1.8-2.4); PHOSPHORUS 4.2 mg/dL (2.5-4.9); POTASSIUM 4.2 mmol/L (3.5-5.1)
[2022-01-10 08:00] VITALS: BP 126/69
[2022-01-10 08:42] VITALS: BP 128/72
[2022-01-10] MEDS: risperiDONE 1 MG TABLET PO SCH ×2 (08:48→17:32)
[2022-01-10] MEDS: THERAHONEY GEL 1.5 OZ TUBE TP SCH (08:54)
--- NOTE | 2022-01-10 10:44 | NUR ---
RN OPENING NOTE PATIENT IN BED, ON SEMI BULLOCK'S, AO X 4, IN NO ACUTE DISTRESS, SATURATION AT 95% ON ROOM AIR, TOLERATING WELL. IV LINE AT L HAND 22G PATENT AND FLUSHING WELL, NO S/S OF INFECTION OR INFILTRATION, SALINE LOCKED. PATIENT IS CONTINENT AND ABLE TO USE URINAL, NOTED A CLEAR, YELLOW OUTPUT. WOUND DRESSING AT B LEGS DRY AND INTACT. SAFETY MEASURES IN PLACE, HOB ELEVATED, BED IS LOCKED AND AT LOWEST POSITION, CALL LIGHT WITHIN REACH OF PATIENT. WILL CONT TO MONITOR AND REASSESS.
[2022-01-10 15:52] VITALS: BP 107/60
--- NOTE | 2022-01-10 19:31 | NUR ---
RN OPENING NOTE PATIENT AWAKE IN BED. A/OX4. NO S/S OF DISTRESS, BREATHING WITHOUT DIFFICULTY ON ROOM AIR. L-HAND #22 SL INTACT AND PATENT. SAFETY MEASURES IN PLACE: BED LOCKED AND AT LOWEST POSITION, RAILS UP X2, CALL HARO WITHIN REACH. WILL CONTINUE TO MONITOR PATIENT.
--- NOTE | 2022-01-10 19:37 | NUR ---
RN CLOSING NOTE PATIENT SLEEPING IN BED. NO S/S OF DISTRESS, BREATHING WITHOUT DIFFICULTY ON ROOM AIR. L-HAND #22 SL INTACT AND PATENT. DUE MEDS GIVEN. WOUND CARE DONE. SAFETY MEASURES IN PLACE: BED LOCKED AND AT LOWEST POSITION, RAILS UP X2, CALL HARO WITHIN REACH. WILL CONTINUE TO MONITOR PATIENT.
[2022-01-10 20:00] VITALS: BP 117/60
--- NOTE | 2022-01-11 06:35 | NUR ---
RN CLOSING NOTE PATIENT AWAKE IN BED. A/OX4. NO S/S OF DISTRESS, BREATHING WITHOUT DIFFICULTY ON ROOM AIR. L-HAND #20 SL INTACT AND PATENT. SAFETY MEASURES IN PLACE: BED LOCKED AND AT LOWEST POSITION, RAILS UP X2, CALL HARO WITHIN REACH. WILL ENDORSE TO NEXT SHIFT FOR VANESA.
--- NOTE | 2022-01-11 07:00 | NUR ---
MS RN OPENING NOTES PATIENT LAYING IN BED, A/O X 4, ABLE TO MAKE NEEDS KNOWN. TOLERATING WELL ON ROOM AIR WITH NO S/S RESPIRATORY DISTRESS. NO COMPLAINTS OF PAIN OR DISCOMFORT AT THIS TIME. L HAND # 20 SL CLEAN, INTACT, AND FLUSHING WELL. SAFETY MEASURES IN PLACE: BED IN LOWEST LOCKED POSITION, SIDE RAILS UP X 2, CALL LIGHT WITHIN REACH. WILL CONTINUE TO MONITOR.
[2022-01-11 07:34] LABS: BASOPHILS % (AUTO) 0.4 % (0.0-2.0); EOSINOPHILS % (AUTO) 2.8 % (0.0-6.0); HEMATOCRIT 40 % (39-51); HEMOGLOBIN 13.3 g/dL (13.5-17.5); LYMPHOCYTES # (AUTO) 1.3 K/uL (0.8-4.8); LYMPHOCYTES % (AUTO) 20.4 % (20.0-44.0); MEAN CORPUSCULAR HGB CONC 33 g/dl (31.0-36.0); MEAN CORPUSCULAR VOLUME 93 fL (80-96); MONOCYTES # (AUTO) 0.4 K/uL (0.1-1.30); MONOCYTES % (AUTO) 5.6 % (2.0-12.0); NEUTROPHILS # (AUTO) 4.5 K/uL (1.8-8.9); NEUTROPHILS % (AUTO) 70.8 % (43.0-81.0); PLATELET COUNT (AUTO) 247 K/uL (150-450); RED BLOOD CELL COUNT(AUTO) 4.27 MIL/uL (4.5-6.0); WHITE BLOOD COUNT (AUTO) 6.3 K/uL (4.3-11.0)
[2022-01-11 07:45] LABS: CALCIUM, SERUM 8.6 mg/dL (8.5-10.1); CREATININE 0.9 mg/dL (0.6-1.3); MAGNESIUM 2.4 mg/dL (1.8-2.4); PHOSPHORUS 3.7 mg/dL (2.5-4.9); POTASSIUM 4.3 mmol/L (3.5-5.1)
[2022-01-11 08:00] VITALS: BP 121/74
[2022-01-11] MEDS: PANTOPRAZOLE 40 MG TABLET.DR PO SCH (08:26)
[2022-01-11] MEDS: risperiDONE 1 MG TABLET PO SCH ×2 (08:45→17:03)
[2022-01-11] MEDS: THERAHONEY GEL 1.5 OZ TUBE TP SCH (08:45)
--- NOTE | 2022-01-11 15:57 | NUR ---
MS RN NOTES RADIOLOGY CONTACTED REGARDING PENDING REPORTS FOR PATIENT'S VENOUS AND ARTERIAL ULTRASOUND SCANS. I WAS INFORMED THEY WOULD FOLLOW UP WITH RADIOLOGIST TO INPUT THE REPORTS.
--- NOTE | 2022-01-11 19:30 | NUR ---
MS RN OPENING NOTE RECEIVED PT AWAKE IN BED. A/O X 4 AND ABLE TO MAKE NEEDS KNOWN. PT STABLE ON ROOM AIR. NO SOB OR S/S OF RESPIRATORY DISTRESS. BREATHING EVEN AND UNLABORED. IV ACCESS L HAND 20G SL, INTACT AND PATENT. BLE DRESSINGS C/D/I. SAFETY PRECAUTIONS IN PLACE. BED IN LOWEST LOCKED POSITION, HOB ELEVATED, SIDE RAILS UP X2, AND CALL LIGHT AND TABLE WITHIN REACH. ALL NEEDS MET AT THIS TIME.
[2022-01-11 20:00] VITALS: BP 106/68
--- NOTE | 2022-01-12 03:35 | NUR ---
RN NOTE TRANSFER CARE TO WOO PATRICIO AT THIS TIME FOR VANESA.
--- NOTE | 2022-01-12 03:42 | NUR ---
noc rn receiving note received patient sleeping. no s/s of apparent distress just room air. bila. lower legs noted to have jose bandages on. no fluids running. call light within reach. safety in place. will continue with plan of care for patient.
[2022-01-12 06:49] LABS: BASOPHILS % (AUTO) 0.3 % (0.0-2.0); EOSINOPHILS % (AUTO) 3.3 % (0.0-6.0); HEMATOCRIT 38 % (39-51); HEMOGLOBIN 12.9 g/dL (13.5-17.5); LYMPHOCYTES # (AUTO) 1.6 K/uL (0.8-4.8); LYMPHOCYTES % (AUTO) 22.8 % (20.0-44.0); MEAN CORPUSCULAR HGB CONC 34 g/dl (31.0-36.0); MEAN CORPUSCULAR VOLUME 93 fL (80-96); MONOCYTES # (AUTO) 0.5 K/uL (0.1-1.30); MONOCYTES % (AUTO) 7.1 % (2.0-12.0); NEUTROPHILS # (AUTO) 4.6 K/uL (1.8-8.9); NEUTROPHILS % (AUTO) 66.5 % (43.0-81.0); PLATELET COUNT (AUTO) 261 K/uL (150-450); RED BLOOD CELL COUNT(AUTO) 4.07 MIL/uL (4.5-6.0); WHITE BLOOD COUNT (AUTO) 6.9 K/uL (4.3-11.0)
--- NOTE | 2022-01-12 07:00 | NUR ---
MS RN OPENING NOTES PATIENT LAYING IN BED, A/O X 4, ABLE TO MAKE NEEDS KNOWN, TOLERATING WELL ON RA WITH NO S/S RA. NO S/S PAIN OR DISCOMFORT. L HAND # 20 SL CLEAN, INTACT, FLUSHING WELL. BLE DRESSINGS C/D/I. SAFETY PRECAUTIONS IN PLACE. BED IN LOWEST LOCKED POSITION, HOB ELEVATED, SIDE RAILS UP X2, AND CALL LIGHT AND TABLE WITHIN REACH. WILL CONTINUE TO MONITOR.
--- NOTE | 2022-01-12 07:42 | NUR ---
NOC RN CLOSING NOTE NEEDS ATTENDED. REPORT GIVEN TO WOO MEJÍA FOR CONTINUITY OF PATIENT CARE.
[2022-01-12 07:53] LABS: CALCIUM, SERUM 8.9 mg/dL (8.5-10.1); CARBON DIOXIDE 25 mmol/L (21-32); CREATININE 1.1 mg/dL (0.6-1.3); GLUCOSE 117 mg/dL (74-106); MAGNESIUM 2.3 mg/dL (1.8-2.4); PHOSPHORUS 4.3 mg/dL (2.5-4.9); POTASSIUM 4.2 mmol/L (3.5-5.1); SODIUM SERUM 142 mmol/L (136-145); UREA NITROGEN, BLOOD 24 mg/dL (7-18)
[2022-01-12 08:00] VITALS: BP 112/68
[2022-01-12] MEDS: THERAHONEY GEL 1.5 OZ TUBE TP SCH (08:18)
[2022-01-12] MEDS: PANTOPRAZOLE 40 MG TABLET.DR PO SCH (08:18)
[2022-01-12] MEDS: risperiDONE 1 MG TABLET PO SCH (08:18)
[2022-01-12] MEDS ORDERED: RISP1TAB7 PO (11:52)
--- NOTE | 2022-01-12 14:00 | NUR ---
MS GATHERING MACHINE SETTER NOTES PATIENT MADE AWARE OF MD DISCHARGE ORDERS AND INSTRUCTIONS. PATIENT VERBALIZED UNDERSTANDING AND SIGNED DISCHARGE INSTRUCTIONS SHEET. PATIENT VERBALIZED POSSESSION OF ALL BELONGINGS AND SIGNED BELONGINGS SHEET. IV LINE AND ID BAND REMOVED. PATIENT AMBULATED OFF OF UNIT ACCOMPANIED BY ENVIRONMENTAL PROTECTION FORESTER. ALL DISCHARGE PAPERWORK PROVIDED. PATIENT STABLE AT TIME OF DISCHARGE.
== END 2022-01-12 14:45 | disposition home or self-care (01) | DRG 951 ==
LOC: ER 03:54 → MED 09:45
PROVIDERS: ADMIT Registered Nurse; ATTEND Student in an Organized Health Care Education/Training Program
PROC: 0YBN0ZZ Excision of Left Foot, Open Approach (ICD-10-PCS; principal; 2022-01-04)
PROC: 0YBM0ZZ Excision of Right Foot, Open Approach (ICD-10-PCS; 2022-01-04)
DX: L03.116 Cellulitis of left lower limb (principal); I87.313 Chronic venous hypertension (idiopathic) with ulcer of bilateral lower extremity; I50.32 Chronic diastolic (congestive) heart failure; F29 Unspecified psychosis not due to a substance or known physiological condition; F20.0 Paranoid schizophrenia; B35.1 Tinea unguium; L97.919 Non-pressure chronic ulcer of unspecified part of right lower leg with unspecified severity; L60.3 Nail dystrophy; L03.115 Cellulitis of right lower limb; L97.929 Non-pressure chronic ulcer of unspecified part of left lower leg with unspecified severity; Z20.822 Contact with and (suspected) exposure to COVID-19; E66.9 Obesity, unspecified; Z68.34 Body mass index [BMI] 34.0-34.9, adult; Z73.6 Limitation of activities due to disability; L84 Corns and callosities; Z66 Do not resuscitate; Z59.00 Homelessness unspecified; I89.0 Lymphedema, not elsewhere classified; F31.9 Bipolar disorder, unspecified; T36.0X5A Adverse effect of penicillins, initial encounter; Y92.9 Unspecified place or not applicable; I70.209 Unspecified atherosclerosis of native arteries of extremities, unspecified extremity; R21 Rash and other nonspecific skin eruption
CPT/HCPCS: 36415; 71045-TC; 80048-TC; 80053-TC; 80061-TC; 80076-TC; 80202-TC; 83605-TC; 83735-TC; 83880; 84100-TC; 84443-TC; 84484-TC; 85025-TC; 86803; 87040-TC; 87070-TC; 87081-TC; 87086-TC; 87186-TC; 87806; 93307-TC; 93970-TC; 97112-TC; 97116-TC; 97530-TC; A4217; A6403; C9803; G0378; J0696; J2543; J3370; J3490; J7030; J7050; J7060

== ENCOUNTER 2022-02-06 18:32 | Emergency (ER) | payer MEDICAID ==
[~2022-02-06] VITALS: Ht 160 cm; Wt 63.5 kg
[~2022-02-06 18:32] MED LIST: RISP1TAB7 PO
[2022-02-06] MEDS ORDERED: RISP1TAB7 PO (19:13)
--- NOTE | 2022-02-06 19:15 | NUR ---
PT REQUESTING MED REFILL FOR RISPERADONE. NO MEDICAL COMPLAINTS.
[2022-02-06 19:22] VITALS: BP 140/82
== END 2022-02-06 19:25 | disposition home or self-care (01) ==
LOC: ER 18:36
DX: F20.9 Schizophrenia, unspecified (principal); Z76.0 Encounter for issue of repeat prescription; Z88.0 Allergy status to penicillin

== ENCOUNTER 2022-02-28 16:02 | Inpatient (IN) | payer MEDICAID ==
[~2022-02-28] VITALS: Ht 162.6 cm; Wt 65.8 kg
--- NOTE | 2022-02-28 16:10 | NUR ---
BIB [facility] FROM HOME, WITNESSED GLF TODAY TWICE, C/O WORSENING CHRONIC LEG PAIN AND WOUND. PLACEED IN BED, AAOX4, BREATHING UNLABORED SATURATING AT 98%RA.
--- NOTE | 2022-02-28 16:33 | NUR ---
AT BEDSIDE FOR EVAL
[2022-02-28] MEDS ORDERED: diphenhydrAMINE HCL 50 MG/ML VIAL ONE (16:45)
--- NOTE | 2022-02-28 16:59 | NUR ---
BLOOD DRAWN AND SENT TO LAB
[2022-02-28] MEDS ORDERED: IV NS 0.9% 1,000 ML IV ONE (17:00)
[2022-02-28] MEDS ORDERED: diphenhydrAMINE HCL 50 MG/ML VIAL IV ONE (17:00)
[2022-02-28 17:21] LABS: BASOPHILS % (AUTO) 0.3 % (0.0-2.0); EOSINOPHILS % (AUTO) 2.5 % (0.0-6.0); HEMATOCRIT 37 % (39-51); HEMOGLOBIN 12.1 g/dL (13.5-17.5); LYMPHOCYTES # (AUTO) 1.5 K/uL (0.8-4.8); LYMPHOCYTES % (AUTO) 17.1 % (20.0-44.0); MEAN CORPUSCULAR HGB CONC 33 g/dl (31.0-36.0); MEAN CORPUSCULAR VOLUME 91 fL (80-96); MONOCYTES # (AUTO) 0.6 K/uL (0.1-1.30); MONOCYTES % (AUTO) 7.4 % (2.0-12.0); NEUTROPHILS # (AUTO) 6.3 K/uL (1.8-8.9); NEUTROPHILS % (AUTO) 72.7 % (43.0-81.0); PLATELET COUNT (AUTO) 295 K/uL (150-450); RED BLOOD CELL COUNT(AUTO) 4.05 MIL/uL (4.5-6.0); WHITE BLOOD COUNT (AUTO) 8.7 K/uL (4.3-11.0)
[2022-02-28 17:44] LABS: CALCIUM, SERUM 8.7 mg/dL (8.5-10.1); CARBON DIOXIDE 26 mmol/L (21-32); CHLORIDE 103 mmol/L (98-107); CREATININE 1.1 mg/dL (0.6-1.3); GLUCOSE 137 mg/dL (74-106); SODIUM SERUM 136 mmol/L (136-145); UREA NITROGEN, BLOOD 14 mg/dL (7-18)
[2022-02-28] MEDS ORDERED: VANCOMYCIN HCL 1.25 GM in IV D5W 260 ML IV ONE (18:30)
--- NOTE | 2022-02-28 18:50 | NUR ---
SWAB FOR COVID19 SENT TO LAB
--- NOTE | 2022-02-28 18:58 | NUR ---
MOVE SHEET SUBMITTED.
--- NOTE | 2022-02-28 20:40 | NUR ---
PT GOING TO 312-2
[2022-02-28] MEDS ORDERED: MAGNESIUM HYDROXIDE 30 ML UDC PO PRN (21:00)
[2022-02-28] MEDS ORDERED: HYDROCODONE/APAP 10/325MG TABLET PO PRN (21:00)
[2022-02-28] MEDS ORDERED: TEMAZEPAM 15 MG CAPSULE PO PRN (21:00)
[2022-02-28] MEDS ORDERED: MAG HYDROX/AL HYDROX/SIMETH 30 ML UDC PO PRN (21:00)
[2022-02-28] MEDS ORDERED: Z GUARD REMEDY 4 OZ OINT TP PRN (21:00)
[2022-02-28] MEDS ORDERED: ACETAMINOPHEN 325 MG TABLET PO PRN (21:00)
[2022-02-28] MEDS ORDERED: HYDROCODONE/APAP 5/325MG TABLET PO PRN (21:00)
[2022-02-28] MEDS ORDERED: ONDANSETRON HCL/PF 4 MG/2 ML VIAL IVP PRN (21:00)
--- NOTE | 2022-02-28 21:28 | NUR ---
REPORT GIVEN TO ILZETTE BERKOWITZ ROOM 312-2 FOR VANESA
[2022-02-28 21:32] LABS: BILIRUBIN,TOTAL 0.2 mg/dL (0.2-1.0)
[2022-02-28 21:41] VITALS: BP 111/68
--- NOTE | 2022-02-28 21:50 | NUR ---
MS RAIL CAR LOADER INITIAL NOTES received pt from ER via jaylen accompanied by dye lab technician. DX, bilateral lower legs Cellulitis . Pt is alert oriented x3 , pt stated that he noticed that he's wound get worse, unable to stand up and walk. Skin warm to touch no signs of any distress noted. he also stated that he's here before with same problem . Denies that he's diabetic .I start Physical assessment while doing the sponges bath with the helped of SKID MAN . Offload bilateral lower legs on pillows . Snacks also served. Re-orient how to used the call light system Kept him warm and comfortable at all times. position pt on sitting while side rails up and bed in low and lock in position. will continue monitoring.
[2022-02-28 22:00] VITALS: BP 111/68
[2022-02-28] MEDS: IV NS 0.9% 1,000 ML IV PRN (22:36)
[2022-02-28] MEDS ORDERED: CEFTRIAXONE 1 G VIAL ONE (22:38)
[2022-02-28] MEDS: CEFTRIAXONE 1 G in IV D5W 50 ML IV SCH (23:14)
--- NOTE | 2022-03-01 | NUR ---
CARDIOLOGY PHYSICIAN ASSISTANT NOTES PT SLEEPING AT THIS TIME WITHOUT ANY DISTRESS NOTED. IVF STILL INFUSING AT THIS TIME. KEPT HIM WARM AND COMFORTABLE AT ALL TIMES. WILL CONTINUE MONITORING. CALL LIGHT AT REACH.
--- NOTE | 2022-03-01 07:05 | NUR ---
MS RECREATION ATTENDANT CLOSING NOTES PT BACK TO SLEEP AFTER SPONGE BATH DONE AND WOUND CARE DONE WELL. DENIES ANY PAIN OR ANY DISCOMFORT. NO SOB NOTED. IVF NS AT 75ML/HR INFUSING ON HIS RIGHT HAND. ALL DUE MEDS GIVEN AND ALL NEEDS MET. KEPT HIM WARM AND COMFORTABLE AT ALL TIMES. STABLE THROUGHOUT THE NIGHT. SEMI FOWLERS POSITION WITH SIDE RAILS X3 UP AND BED ALARM SET FOR SAFETY. PLACE CALL LIGHT AT REACH. WILL ENDORSE TO AM NURSE FOR CONTINUITY OF CARE.
[2022-03-01 07:30] LABS: BASOPHILS % (AUTO) 0.2 % (0.0-2.0); EOSINOPHILS % (AUTO) 1.3 % (0.0-6.0); HEMATOCRIT 34 % (39-51); HEMOGLOBIN 10.8 g/dL (13.5-17.5); LYMPHOCYTES # (AUTO) 1.1 K/uL (0.8-4.8); LYMPHOCYTES % (AUTO) 9.9 % (20.0-44.0); MEAN CORPUSCULAR HGB CONC 32 g/dl (31.0-36.0); MEAN CORPUSCULAR VOLUME 92 fL (80-96); MONOCYTES # (AUTO) 0.9 K/uL (0.1-1.30); MONOCYTES % (AUTO) 8.2 % (2.0-12.0); NEUTROPHILS # (AUTO) 9.1 K/uL (1.8-8.9); NEUTROPHILS % (AUTO) 80.4 % (43.0-81.0); PLATELET COUNT (AUTO) 227 K/uL (150-450); RED BLOOD CELL COUNT(AUTO) 3.66 MIL/uL (4.5-6.0); WHITE BLOOD COUNT (AUTO) 11.4 K/uL (4.3-11.0)
[2022-03-01 07:41] LABS: CALCIUM, SERUM 8.1 mg/dL (8.5-10.1); CREATININE 1.1 mg/dL (0.6-1.3); PHOSPHORUS 3.3 mg/dL (2.5-4.9); POTASSIUM 3.6 mmol/L (3.5-5.1)
[2022-03-01 08:00] VITALS: BP 97/43
--- NOTE | 2022-03-01 08:11 | NUR ---
RN OPENING NOTE RECEIVED PATIENT IN BED, AO X 3. ABLE TO RESPONDS PHYSICAL STIMULI. RESPIRATORY EVEN AND UNLABORED ON ROOM AIR. IN NO ACUTE DISTRESS OBSERVED. SKIN IS WARM TO TOUCH, KEEP CLEAN/DRY. KEPT ELEVATED HOB FOR ASPIRATION PRECAUTION/ENSURE AIRWAY, AND LOWEST BED POSITIONED. BED ALARM IS ON AT ALL THE TIME FOR SAFETY. CALL LIGHT WITHIN REACH, WILL CONTINUE TO MONITOR
[2022-03-01] MEDS: PANTOPRAZOLE 40 MG TABLET.DR PO SCH (08:28)
[2022-03-01] MEDS: risperiDONE 1 MG TABLET PO SCH ×2 (08:28→16:30)
[2022-03-01] MEDS: VANCOMYCIN 0.75 GM in IV D5W 250 ML IV SCH ×2 (08:29→20:31)
--- NOTE | 2022-03-01 12:07 | NUR ---
PATIENT RECIEVED DVT PROPHYLAXIS ORDER:LOVENOX 40 MG, DAILY. NOTED AND CARRIED OUT.
[2022-03-01] MEDS: ENOXAPARIN SODIUM 40 MG/0.4 ML DISP.SYRIN SQ SCH (12:53)
[2022-03-01 16:00] VITALS: BP 110/44
[2022-03-01] MEDS: IV NS 0.9% 1,000 ML IV PRN (16:30)
--- NOTE | 2022-03-01 18:53 | NUR ---
RN CLOSING NOTE PATIENT RESTING IN BED. IN NO ACUTE DISTRESS OBSERVED. RESPIRATORY EVEN AND UNLABORED IN ROM AIR. IN NO ACUTE DISTRESS OBSERVED. SKIN IS WARM TO TOUCH KEEP CLEAN/DRY. WOUND CARE PROVIDED FOR BILATERAL LOWER EXTREMITIES CELLULITIS. KEPT ELEVATED HOB FOR ENSURE AIRWAY/ASPIRATION PRECAUTION, AND LOWEST BED POSITION. BED ALARM IS ON AT ALL THE TIME FOR SAFETY. CALL LIGHT WITHIN REACH, WILL ENDORSE FROG FARMER.
[2022-03-01 20:00] VITALS: BP 115/52
[2022-03-01] MEDS: CEFTRIAXONE 1 G in IV D5W 50 ML IV SCH (21:35)
[2022-03-01 22:00] VITALS: BP 118/70
--- NOTE | 2022-03-02 02:16 | NUR ---
RN NOTES: PT. RESTING IN HIS BED ,DENIES ANY PAIN OR ANY DISCOMFORT AT THIS TIME. NO SOB NOTED. IVF NS AT 75ML/HR INFUSING ON HIS RIGHT HAND. ALL DUE MEDS GIVEN AND ALL NEEDS MET. KEPT HIM WARM AND COMFORTABLE AT ALL TIMES. SAFETY PRECAUTION PLACED.ALL NEEDS ATTENDED . PLACE CALL LIGHT AT REACH. WILL CONTINUITY OF CARE.
[2022-03-02] MEDS: IV NS 0.9% 1,000 ML IV PRN (05:36)
--- NOTE | 2022-03-02 06:51 | NUR ---
RN NOTES: COLLECTED URINE SPECIMEN FOR UA , AND MRSA NARES SEND OUT TO LAB.
[2022-03-02 07:07] LABS: BASOPHILS % (AUTO) 0.2 % (0.0-2.0); EOSINOPHILS % (AUTO) 1.8 % (0.0-6.0); HEMATOCRIT 32 % (39-51); HEMOGLOBIN 10.6 g/dL (13.5-17.5); LYMPHOCYTES # (AUTO) 1.4 K/uL (0.8-4.8); LYMPHOCYTES % (AUTO) 15.1 % (20.0-44.0); MEAN CORPUSCULAR HGB CONC 33 g/dl (31.0-36.0); MEAN CORPUSCULAR VOLUME 91 fL (80-96); MONOCYTES # (AUTO) 0.6 K/uL (0.1-1.30); MONOCYTES % (AUTO) 6.9 % (2.0-12.0); PLATELET COUNT (AUTO) 217 K/uL (150-450); RED BLOOD CELL COUNT(AUTO) 3.55 MIL/uL (4.5-6.0); WHITE BLOOD COUNT (AUTO) 9.2 K/uL (4.3-11.0)
[2022-03-02 07:24] LABS: CALCIUM, SERUM 8.1 mg/dL (8.5-10.1); POTASSIUM 3.7 mmol/L (3.5-5.1)
--- NOTE | 2022-03-02 07:50 | NUR ---
RN OPENING NOTE RECEIVED PATIENT IN BED, AO X 3. ABLE TO RESPONDS ALL STIMULI. RESPIRATORY EVEN AND UNLABORED IN ROOM AIR. IN NO ACUTE DISTRESS OBSERVED. SKIN IS WARM TO TOUCH, KEEP CLEAN/DRY. KEPT ELEVATED HOB FOR ASPIRATION PRECAUTION/ENSURE AIRWAY, ALSO LOWEST BED POSITIONED. BED ALARM IS ON AT ALL THE TIME FOR SAFETY. CALL LIGHT WITHIN REACH, WILL CONTINUE TO MONITOR.
[2022-03-02] MEDS: risperiDONE 1 MG TABLET PO SCH ×2 (08:31→16:35)
[2022-03-02] MEDS: PANTOPRAZOLE 40 MG TABLET.DR PO SCH (08:31)
[2022-03-02] MEDS: ENOXAPARIN SODIUM 40 MG/0.4 ML DISP.SYRIN SQ SCH (08:32)
[2022-03-02] MEDS: VANCOMYCIN 0.75 GM in IV D5W 250 ML IV SCH (09:50)
[2022-03-02] MEDS: VANCOMYCIN 1 GM in IV D5W 250 ML IV SCH (16:53)
[2022-03-02] MEDS ORDERED: VANCOMYCIN 1 GM in IV D5W 250 ML IV SCH (18:00)
--- NOTE | 2022-03-02 18:50 | NUR ---
RN CLOSING NOTE PATIENT RESTING IN BED. IN NO ACUTE DISTRESS OBSERVED. NO ADVERSE REACTION OBSERVED. RESPIRATORY EVEN AND UNLABORED IN ROM AIR. IN NO ACUTE DISTRESS OBSERVED. SKIN IS WARM TO TOUCH KEEP CLEAN/DRY. WOUND CARE PROVIDED ON BILATERAL LOWER EXTREMITIES. ENCOURAGED PATIENT TO ORAL FLUID INTAKE TOLERATED. KEPT ELEVATED HOB FOR ENSURE AIRWAY/ASPIRATION PRECAUTION, AND LOWEST BED POSITION. BED ALARM IS ON AT ALL THE TIME FOR SAFETY. 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
--- NOTE | 2022-03-02 19:46 | NUR ---
MS RN OPENING NOTES: RECEIVED PATIENT AWAKE IN BED, ACCOMPANIED BY VISITOR, BED IN LOW POSITION CALL LIGHTS WITHIN REACH, NO COMPLAIN OF PAIN AND DISCOMFORT AT THIS TIME, ON ROOM AIR SATURATING WELL, PATIENT IS A/OX3-4 ABLE TO MAKE NEEDS KNOWN, ON BED REST, WITH IV LINE AT LEFT HAND #22 WITH ONGOING NSS@75ML/HR INFUSIGN WELL, PATIENT KEPT CLEAN AND DRY ALL NEEDS MET WILL CONTINUE TO MONITOR.
[2022-03-02 20:00] VITALS: BP 94/60
[2022-03-02] MEDS: CEFTRIAXONE 1 G in IV D5W 50 ML IV SCH (21:13)
[2022-03-03] MEDS ORDERED: VANCOMYCIN 0.75 GM in IV D5W 250 ML IV SCH ×2
[2022-03-03] MEDS: VANCOMYCIN 1 GM in IV D5W 250 ML IV SCH ×2 (05:57→17:17)
[2022-03-03 06:42] LABS: BASOPHILS % (AUTO) 0.2 % (0.0-2.0); EOSINOPHILS % (AUTO) 2.4 % (0.0-6.0); HEMATOCRIT 34 % (39-51); LYMPHOCYTES # (AUTO) 1.1 K/uL (0.8-4.8); LYMPHOCYTES % (AUTO) 14.8 % (20.0-44.0); MEAN CORPUSCULAR HGB CONC 33 g/dl (31.0-36.0); MEAN CORPUSCULAR VOLUME 91 fL (80-96); MONOCYTES # (AUTO) 0.5 K/uL (0.1-1.30); MONOCYTES % (AUTO) 7.2 % (2.0-12.0); NEUTROPHILS # (AUTO) 5.6 K/uL (1.8-8.9); NEUTROPHILS % (AUTO) 75.4 % (43.0-81.0); PLATELET COUNT (AUTO) 217 K/uL (150-450); RED BLOOD CELL COUNT(AUTO) 3.68 MIL/uL (4.5-6.0); WHITE BLOOD COUNT (AUTO) 7.4 K/uL (4.3-11.0)
[2022-03-03 07:00] VITALS: BP 114/57
[2022-03-03 07:34] LABS: CALCIUM, SERUM 8.1 mg/dL (8.5-10.1); MAGNESIUM 2.2 mg/dL (1.8-2.4); PHOSPHORUS 4.2 mg/dL (2.5-4.9); POTASSIUM 3.7 mmol/L (3.5-5.1)
--- NOTE | 2022-03-03 07:47 | NUR ---
RN CLOSING NOTES: PATIENT SLEEP IN BED COMFORTABLY, BED IN LOW POSITION, CALL LIGHTS WITHIN REACH, NO COMPLAIN OF PAIN AND DISCOMFORT AT THIS TIME, ON O2 O2 INHALATION AT 2LPM SATURATING WELL, NO SOB WAS OBSERVED, PATIENT KEPT CLEAN AND DRY ALL NEEDS MET ENDORSE TO INCOMING SHIFT.
--- NOTE | 2022-03-03 07:50 | NUR ---
RN OPENING NOTE RECEIVED PATIENT IN BED, AO X 3. ABLE TO MAKE NEEDS KNOWN. PT IS BREATHING EVEN AND NONLABORED . NO S/S OF ACUTE DISTRESS. NO COMPLAINTS OF PAIN AT THIS TIME. SKIN IS WARM TO TOUCH. IV ACCESS L HAND #22G RUNNING NS @75ML/HR. BUNN CATHETER IN PLACE, DRAINING BY GRAVITY. FALL AND SAFETY MEASURES IN PLACE, BED ALARM ON, BED IS IN LOWEST AND LOCKED POSITION, CALL LIGHT AND TABLE WITHIN EASY REACH, SIDE RAILS UPX2. WILL CONTINUE TO MONITOR.
[2022-03-03] MEDS: PANTOPRAZOLE 40 MG TABLET.DR PO SCH (08:23)
[2022-03-03] MEDS: risperiDONE 1 MG TABLET PO SCH ×2 (08:23→16:30)
[2022-03-03] MEDS: ENOXAPARIN SODIUM 40 MG/0.4 ML DISP.SYRIN SQ SCH (08:40)
--- NOTE | 2022-03-03 10:34 | NUR ---
WOUND CARE CONSULT: PT PRESENTS WITH LARGE OPEN ULCERS TO BILATERAL LOWER LEGS WITH REDNESS, SWELLING AND ODOR, PRESENT ON ADMISSION. DR DEL TORO CALLED FOR DPM CONSULT. DISCUSSED SKIN PROTECTION WIT NURSING STAFF. PT STATES IS HAVING PERIANAL ITCHING. RECOMMEND Coleen OLSEN MD IN AGREEMENT WITH PLAN OF CARE. Addendum: 03/03/22 at 1037 by ANDREW LEONARD WNDNU LOWER LEGS WERE DRESSED WITH XEROFORM DRESSINGS, COVERED WITH ABD PADS AND GENTLY WRAPPED WITH KERLIX/BURN NET TIL SEEN BY DPM.
[2022-03-03] MEDS: IV NS 0.9% 1,000 ML IV PRN (14:19)
[2022-03-03 16:00] VITALS: BP 100/54
--- NOTE | 2022-03-03 18:35 | NUR ---
RN CLOSING NOTE PATIENT RESTING IN BED. IN NO ACUTE DISTRESS OBSERVED. NO ADVERSE REACTION OBSERVED. RESPIRATORY EVEN AND NON LABORED ON ROM AIR. PT KEPT CLEAN AND DRY. WOUND CARE PROVIDED ON BILATERAL LOWER EXTREMITIES. IV ACCESS L HAND #22G RUNNING NS @75ML/HR. FALL AND SAFETY MEASURES IN PLACE: KEPT HOB ELEVATED FOR ENSURE AIRWAY/ASPIRATION PRECAUTION, AND LOWEST BED POSITION. BED ALARM IS ON AT ALL THE TIME FOR SAFETY. CALL LIGHT WITHIN REACH, WILL ENDORSE LOGISTICS ENGINEER FOR VANESA.
--- NOTE | 2022-03-03 19:30 | NUR ---
noc rn opening note received patient in bed, a/ox2-3, answer questions vaguely. no s/s of apparent distress on room air, breathing even and unlabored. denies pain at this time. lt. hand #22g running IV NS @75mls/hr. BLE noted to have dressing and net on. call light within reach, safety in place. patient able to make needs known. will continue with plan of care for patient.
[2022-03-03 20:00] VITALS: BP_SYST 100; BP_SYST 112; BP_DIAS 59; BP_DIAS 73
[2022-03-03] MEDS: CEFTRIAXONE 1 G in IV D5W 50 ML IV SCH (21:12)
[2022-03-04] MEDS: VANCOMYCIN 1 GM in IV D5W 250 ML IV SCH ×2 (06:23→17:15)
[2022-03-04 07:09] LABS: BASOPHILS % (AUTO) 0.6 % (0.0-2.0); EOSINOPHILS % (AUTO) 3.7 % (0.0-6.0); HEMATOCRIT 35 % (39-51); HEMOGLOBIN 11.7 g/dL (13.5-17.5); LYMPHOCYTES # (AUTO) 0.9 K/uL (0.8-4.8); LYMPHOCYTES % (AUTO) 15.4 % (20.0-44.0); MEAN CORPUSCULAR HGB CONC 33 g/dl (31.0-36.0); MEAN CORPUSCULAR VOLUME 92 fL (80-96); MONOCYTES # (AUTO) 0.5 K/uL (0.1-1.30); MONOCYTES % (AUTO) 8.1 % (2.0-12.0); NEUTROPHILS # (AUTO) 4.4 K/uL (1.8-8.9); NEUTROPHILS % (AUTO) 72.2 % (43.0-81.0); PLATELET COUNT (AUTO) 224 K/uL (150-450); RED BLOOD CELL COUNT(AUTO) 3.84 MIL/uL (4.5-6.0); WHITE BLOOD COUNT (AUTO) 6.1 K/uL (4.3-11.0)
--- NOTE | 2022-03-04 07:15 | NUR ---
RN OPENING NOTE RECEIVED PATIENT IN BED, AO X 3. ABLE TO MAKE NEEDS KNOWN. PT IS BREATHING EVEN AND NONLABORED . NO S/S OF ACUTE DISTRESS. NO COMPLAINTS OF PAIN AT THIS TIME. SKIN IS WARM TO TOUCH. IV ACCESS L HAND #22G RUNNING NS @75ML/HR. FALL AND SAFETY MEASURES IN PLACE, BED ALARM ON, BED IS IN LOWEST AND LOCKED POSITION, CALL LIGHT AND TABLE WITHIN EASY REACH, SIDE RAILS UPX2. WILL CONTINUE TO MONITOR.
[2022-03-04 07:41] LABS: CALCIUM, SERUM 8.2 mg/dL (8.5-10.1); CREATININE 0.9 mg/dL (0.6-1.3); MAGNESIUM 2.3 mg/dL (1.8-2.4); PHOSPHORUS 4.4 mg/dL (2.5-4.9); POTASSIUM 3.9 mmol/L (3.5-5.1)
[2022-03-04 08:00] VITALS: BP 108/66
[2022-03-04] MEDS: ENOXAPARIN SODIUM 40 MG/0.4 ML DISP.SYRIN SQ SCH (08:16)
[2022-03-04] MEDS: risperiDONE 1 MG TABLET PO SCH ×2 (08:16→16:11)
[2022-03-04] MEDS: PANTOPRAZOLE 40 MG TABLET.DR PO SCH (08:16)
[2022-03-04] MEDS: IV NS 0.9% 1,000 ML IV PRN ×2 (08:46→21:54)
[2022-03-04 16:00] VITALS: BP 100/58
[2022-03-04] MEDS: CLOTRIMAZOLE 1% 15 GM TUBE TP SCH (17:04)
--- NOTE | 2022-03-04 17:25 | NUR ---
INDUSTRIAL MAINTENANCE REPAIRER NOTE WOUND CARE PERFORMED AT THIS TIME PER ORDERS. OLD DRESSING REMOVED ON BLE. CLEANSED WITH NS, APPLIED LOTRIMIN CREAM, APPLIED XEROFORM, COVERED WITH ABD PADS. WRAPPED WITH KERLIX GAUZE. TOLERATED WELL.
--- NOTE | 2022-03-04 18:30 | NUR ---
RN CLOSING NOTE PATIENT AWAKE IN BED. A/OX3. PT ON RA BREATHING EVEN AND NON LABORED. NO S/S OF ACUTE DISTRESS. PT KEPT CLEAN AND DRY. WOUND CARE PROVIDED ON BLE. IV ACCESS L HAND #22G RUNNING NS @75ML/HR. FALL AND SAFETY MEASURES IN PLACE: KEPT HOB ELEVATED FOR ENSURE AIRWAY/ASPIRATION PRECAUTION, AND LOWEST BED POSITION. BED ALARM IS ON AT ALL THE TIME FOR SAFETY. CALL LIGHT WITHIN REACH, WILL ENDORSE LOOM FIXER SUPERVISOR FOR VANESA.
--- NOTE | 2022-03-04 19:00 | NUR ---
RN NOTES: RECEIVED AWAKE ON BED, ON ROOM AIR, A/OX2-3 ORIENTED TO UNIT AND STAFF, PER ENDORSEMENT RN JUST DID HIS DRESSING ON BLE CELLULITIS, IVF ONGOING NS AT 75 ML/HR VIA LEFT HAND G#22, SAFETY PRECAUTION OBSERVED, NO PAIN OR DISCOMFORT AT THIS TIME, NON LABORED BREATHING, KEPT CALL LIGHT WITHIN EASY REACH.
[2022-03-04 20:00] VITALS: BP 110/62
[2022-03-04] MEDS: CEFTRIAXONE 1 G in IV D5W 50 ML IV SCH (20:36)
[2022-03-04 21:07] VITALS: BP 110/62
--- NOTE | 2022-03-04 21:55 | NUR ---
RN NOTES; IVF CONSUMED NEW BOTTLE OF NS AT 75 ML/HR STARTED.
--- NOTE | 2022-03-04 22:04 | NUR ---
RN NOTES: HE DONT WANT TO BE AWAKEN, HE ASKED FOR HIS SLEEPING PILL, RESTORIL GIVEN AT 2157 PER PATIENT REQUEST.
[2022-03-05] MEDS: VANCOMYCIN 1 GM in IV D5W 250 ML IV SCH ×2 (06:15→17:57)
--- NOTE | 2022-03-05 06:24 | NUR ---
RN NOTES: SLEEP WELL IN THE NIGHT NO COMPLAINTS, RN CAME TO DO HIS DRESSING, HE SAID "NOT NOW, LATER ON, IT WAS ALSO CHANGE YESTERDAY", THEN HE GO BACK TO SLEEP.
[2022-03-05 06:32] LABS: CALCIUM, SERUM 8.2 mg/dL (8.5-10.1); CREATININE 0.9 mg/dL (0.6-1.3); POTASSIUM 3.8 mmol/L (3.5-5.1)
--- NOTE | 2022-03-05 07:30 | NUR ---
RN Opening Note Pt AOx4 able to express his concerns. Patient states no discomfort, no signs of distress. IV with no signs of infiltration. Discussed plan of care with patient, pt verbalized understanding. All safety precautions taken, call light and table within reach, bed at lowest position. Will continue to monitor throughout shift and provide care as needed.
[2022-03-05 08:00] VITALS: BP 110/65
[2022-03-05] MEDS: PANTOPRAZOLE 40 MG TABLET.DR PO SCH (08:15)
[2022-03-05] MEDS: ENOXAPARIN SODIUM 40 MG/0.4 ML DISP.SYRIN SQ SCH (08:16)
[2022-03-05] MEDS: risperiDONE 1 MG TABLET PO SCH ×2 (08:16→16:44)
[2022-03-05] MEDS: CLOTRIMAZOLE 1% 15 GM TUBE TP SCH ×2 (08:51→17:07)
[2022-03-05] MEDS: DAKINS QUARTER STRENGTH (0.125%) 480 ML BOTTLE TOP SCH (08:51)
[2022-03-05] MEDS: ENSURE ENLIVE 237 ML LIQUID (VANILLA) PO SCH (16:44)
--- NOTE | 2022-03-05 16:56 | NUR ---
SS CONSULT REQUESTED. SW WILL FOLLOW UP AT A LATER TIME.
[2022-03-05] MEDS ORDERED: PNEUMOCOCCAL 23-VAL P-SAC VAC 0.5 ML VIAL SQ ONE (17:30)
--- NOTE | 2022-03-05 18:19 | NUR ---
RN closing Note Patient AOx4 able to express his concerns. Patient makes delusional statements at times "my enemies can hear me thought the TV remote" "Don't mind me not answering, I don't want my enemies to hear me". No signs of distress or discomfort noted or reported by patient other than when providing wound care. No signs of IV infiltration. Throughout shift provided assistance as needed and medications as prescribed. Patient remained safe throughout shift, all safety precautions taken, call light and table within reach, bed at lowest position. Will endorse to night nurse for continuity of care.
--- NOTE | 2022-03-05 19:30 | NUR ---
MS RN OPENING NOTE PATIENT IN BED, WITH HOB ELEVATED, ALERT AND ORIENTED X4 WITH CONFUSION. AFEBRILE AND NOT IN ANY FORM OF ACUTE DISTRESS. BREATHING EVEN AND NON LABORED. NO C/O PAIN OR DISCOMFORT AT THIS TIME. LUNG SOUNDS CLEAR ON AUSCULTATION. WITH IV ACCESS ON R HAND 20G- RUNNING WITH NS AT 75ML/HR. SAFETY MEASURES IN PLACE. KEPT BED IN LOCKED AND IN LOW POSITION. SIDE RAILS UP X2. ADVISED TO USE THE CALL LIGHT WHEN IN NEED OF ASSISTANCE.
[2022-03-05 20:00] VITALS: BP 102/52
[2022-03-05] MEDS: CEFTRIAXONE 1 G in IV D5W 50 ML IV SCH (20:09)
[2022-03-05] MEDS: IV NS 0.9% 1,000 ML IV PRN (22:18)
[2022-03-05] MEDS ORDERED: GUAIFENESIN 300 MG/15 ML UDC PO PRN (23:30)
[2022-03-05] MEDS: GUAIFENESIN/D-METHORPHAN HB 5 ML UDC PO PRN (23:40)
--- NOTE | 2022-03-06 06:30 | NUR ---
MS RN CLOSING NOTE PATIENT IN BED, WITH HOB ELEVATED, ASLEEP BUT EASY TO AROUSE AND RESPONSIVE. AFEBRILE AND NOT IN ANY FORM OF ACUTE DISTRESS. BREATHING EVEN AND NON LABORED. NO C/O PAIN OR DISCOMFORT THROUGHOUT THE SHIFT. LUNG SOUNDS CLEAR ON AUSCULTATION. WITH IV ACCESS ON R HAND 20G- RUNNING WITH NS AT 75ML/HR. MEDICATED ORDERED. CONTINUOUS ON IV ATB, MONITORED FOR ANY ADVERSE REACTION. ENCOURAGED TO TURN AND REPOSITION EVERY 2 HOURS AND TOLERATED. SAFETY MEASURES IN PLACE. KEPT BED IN LOCKED AND IN LOW POSITION. SIDE RAILS UP X2. ADVISED TO USE THE CALL LIGHT WHEN IN NEED OF ASSISTANCE. ALL NURSING NEEDS ATTENDED. ENDORSED TO INCOMING SHIFT FOR CONTINUITY OF CARE.
--- NOTE | 2022-03-06 07:00 | NUR ---
MS RN OPENING NOTES: RECEIVED PATIENT IN BED, AWAKE, ALERT AND ORIENTED X 4 AND ABLE TO MAKE NEEDS KNOWN. NO SOB OR CARDIAC DISTRESS NOTED, DENIES PAIN AT THIS TIME. IV ACCESS ON R HAND GAUGE 20, PATENT, INTACT AND INFUSING NS 75ML/HR. NOTED R/L LOWER LEG WITH DRESSING PATENT AND INTACT. SAFETY MEASURES MAINTAINED: BED LOCKED AND IN LOWEST POSITION. SIDE RAILS UP X 2. CALL LIGHT IN EASY REACH FOR HELP. WILL MONITOR PT ACCORDINGLY.
[2022-03-06] MEDS: PANTOPRAZOLE 40 MG TABLET.DR PO SCH (07:26)
[2022-03-06 07:30] LABS: CREATININE 0.9 mg/dL (0.6-1.3)
[2022-03-06 07:50] LABS: CALCIUM, SERUM 8.2 mg/dL (8.5-10.1)
[2022-03-06 08:00] VITALS: BP 114/55
[2022-03-06] MEDS: ENSURE ENLIVE 237 ML LIQUID (VANILLA) PO SCH ×3 (08:05→17:15)
[2022-03-06] MEDS: VANCOMYCIN 1 GM in IV D5W 250 ML IV SCH (08:06)
[2022-03-06] MEDS: risperiDONE 1 MG TABLET PO SCH ×2 (08:23→16:31)
[2022-03-06] MEDS: DAKINS QUARTER STRENGTH (0.125%) 480 ML BOTTLE TOP SCH (08:25)
[2022-03-06] MEDS: CLOTRIMAZOLE 1% 15 GM TUBE TP SCH ×2 (08:26→17:16)
[2022-03-06] MEDS: ENOXAPARIN SODIUM 40 MG/0.4 ML DISP.SYRIN SQ SCH (08:32)
[2022-03-06] MEDS ORDERED: INFLUENZA VACCINE 2022-23 0.5 ML DISP.SYRIN IM ONE (09:00)
[2022-03-06] MEDS ORDERED: SULF1TAB48 PO (09:08)
[2022-03-06] MEDS: GUAIFENESIN/D-METHORPHAN HB 5 ML UDC PO PRN (12:20)
--- NOTE | 2022-03-06 15:37 | NUR ---
SS consult: SS Consult requested for safe discharge planning. The pt. is 72-year-old Indonesian male admitted to [facility] for Bilateral lower extremity cellulitis. The pt. is alert & oriented x 4 and makes good eye contact. The pt. has history of Schizophrenia and Bipolar disorder. Per pt.s nurse, the pt. is on Risperidone. The pt. appears unkempt with euthymic mood & affect. Per pt. he resides at home [[address] [facility] [address]] with his domestic partner, Deni Ruiz [phone]. Per pt. he is independent with his ADLs and stated he has fallen in the past when she is not using his walker. Per pt. he has a walker at home and will be using it to ambulate safely. Per pt. he has no children. Pt. gave verbal consent to contact his domestic partner, Deni Ruiz [phone]. Deni stated he is the pt.s DPOA. CRISTINA placed senior resources in pt.s discharge folder and encouraged Deni him to hire a caregiver if he feels the pt. needs additional assistance. CRISTINA also notified Deni that resources included for transportation, meal delivery, DME, insurance assistance etc. Deni was receptive and stated he will use resources as needed. DC Plan: Per pt. she would like to return home [[address] [facility] [facility] [address]] with his domestic partner, Deni Ruiz [phone]. Per CM note transportation was set up for 4 pm machine operator picker to return home. also ordered home health services for PT, wound nurse, etc. and pt. has outpatient follow up apt. with [facility], Dr. Ca. CRISTINA discussed this with Deni and he stated Nicol MOSES had communicated this with him. Noted. CRISTINA discussed DC plan with RN, Sonia. CRISTINA provided pt. with the follow senior resources and pt. accepted them: ABUSE PREVENTION: ELDER ABUSE HOTLINE (15/09) ADULT PROTECTIVE SERVICES HOTLINE LONG-TERM CARE [facility] Region AREA ON AGING (HOTLINE) ADULT DAY HEALTH CARE CARE CENTERS: Private pay or [facility] funded adult day care [facility] , [facility] Services , [facility] , [facility] Day Health Care , [facility] Day [facility] Care , [facility] Adult Daycare Center , [place] ONE Generation [place] , Sal Alcaraz [facility] , [place] ALZHEIMERS DISEASE/DEMENTIA: Alzheimers Association Helpline [facility] www.alz.org/[facility] of Aging www.lacity.org Family Caregiver [place] www.caregiver.org [place] Caregiver Resources Center/Family Support www.[facility].org CANCER RESOURCES: [place] Cancer Society www.cancer.org Cancer Support Community www.CancerSupportVvsb.org: CancerCare www.cancercare.org [facility] Cancer Support Center www.[facility].org COMMUNITY HEALTH ASSOCIATIONS: AARP www.aarp.org ALS Association (ask for Helen) www.als.org Bur[place] Diabetes Association www.diabetes.org Bur[place] Heart Association www.heart.org Bur[place] Lung Association www.lungusa.org Bur[place]an Parkinson Disease Association www.apdaparkinson.org Burkinan Roberts , www.redcross.org Arthritis Foundation www.arthritis.org Crohns & Colitis Foundation of Burkinan www.ccfa.org/chapters/angelic National Multiple Sclerosis Society www.nationalmssociety.org Myasthenia Gravis Foundation www.myasthenia-ca.org National Stroke Association www.stroke.org CONSERVATORSHIP & GUARDIANSHIP: AARP Sabrina Braun Legal Services Center for Health Care Rights Eldercare Information and Referral Concaving Machine Operator Foundation [facility]: [facility] Referral Service [facility] Legal Services Office of the Public Guardian [place] EYESIGHT DISORDER RESOURCES: [place] Macular Degeneration Foundation [facility] www.[facility].org GRIEF AND BEREAVEMENT RESOURCES: [facility] , [facility] Connection , [facility] Bereavement Center , [place] HEARING DISORDER RESOURCES: [place] Telephone Access Program Deaf and Disabled Telecommunications Program www.ddtp.[facility].ca.gov HearRx Hearing Centers ([place]) Better Hearing Systems , [place] GLAD ([facility] Agency on Deafness) V/ TTY; Access Control Officer , [facility] Hearing [facility] -low income hearing aid assistance www.Playthe.nethearingfoundation.org [place] [facility] , Stef HELP AT HOME CAREGIVER SUPPORT: In Home Support Services (Must have Medi-Patrick to be eligible) *Ask for a list of agencies that provide services to assist with care in the home. Local Senior Centers also have listings of care providers. HOME SAFETY MODIFICATIONS AND EQUIPMENT: Senior centers have additional referrals. [place] Housing and Community Investment Dept. Handyworker Program (low income) or Visit http://hcidla.[facility].org/pxn-rosrom-fs for more information National Seating and Mobility and/or ; Forever Active www.foreverDiagnoplexmed.Skataz Stay Home Safe www.Stayhomesafe.com LIFE ALERT RESPONSE SYSTEM: As It Is Services 759-815-1278 www. Phase Holographic Imaging Life Alert 239-058-6274 www.[facility] Station 434-437-5450 www.Typo Keyboardsation.Skataz Safe Return 335-016-9578 www.alz.or/safereturn Cell Phones for Seniors www.Kiyon MEALS AND FOOD PROGRAMS: [place] Meals on Wheels [phone] [place] Meals on Wheels [phone] [facility] [phone] [place] to the Homebound [phone] [place] to the Homebound [phone] [facility] to the Homebound [phone] [facility] to the Homebound [phone] [facility] [phone] [facility] [phone] ONE Generation [phone] [facility] [phone] [facility] [phone] Meals on Wheels [phone] For all ages: $6.85/ meal w side. Delivered M-F from 10 am-1pm. Application and payment is done over the phone. Frozen meals available for weekends. Emergency Food [facility] [phone] [facility] Toe Sewer [phone] [facility] [phone] [facility] Brown bag lunches [phone] [place] [facility] [phone] MEAL/GROCERY DELIVERY PROGRAMS: Florentino [facility] Gourmet Meals [phone]- [facility] [phone]- [facility] Magic Kitchen [phone] Moms Meals [phone] (ask Rogers for Discount Select grocery stores may provide delivery. MEDICAL INSURANCE SUPPORT SERVICES: Center for Health Care Rights [phone] Health Insurance Counseling/Advocacy Programs (HICAP)-Must have Medicare. Offers counseling for Medi-Patrick eligibility [phone] [facility] Public Toe Sewer [phone] www.[facility].ca.gov Medicare 162-635-6408 www.socialsecurity.org Social Security [phone] SENIOR ACTIVITY PROGRAMS: *Contact a local senior center, adult school, recreation facility or community college for education, fitness, recreation, and social programs. Aquatic Therapy and Adapted Exercise programs through [facility] [phone] [facility] [phone]/encore U- Senior Friends [phone] Galliano Senior Programs 113-308-5186 www.oasisnet.org Suddenly 65 www.aeoyizux75.com SENIOR CENTERS: [facility] [phone] [facility] [phone] [facility] [phone] [facility] [phone] [facility] [phone] [facility] [phone] [facility] [phone] [facility] [phone] One Generation, [facility] [phone] [facility] [phone] [facility] [phone] [facility] [phone] [facility] [phone] TRANSPORTATION: Local Senior Centers may have applications for transportation programs and additional resources. ACCESS Services [phone] Transportation for seniors and disabled persons 7 days a week requiring 254 hr. advance reservation. Must apply and register for program linden eligible. BuildDirect 584-307-0619 or [phone] Transportation for seniors and persons with ADA card/metro disabled card in the [facility]. M-F only. Must register for services. ONE GENERATION [phone] Serves 65 years + in conjunction with myMatrixxe program. Must be registered with both programs. A to B Transport [phone] Provides wheelchair/gurney van service. Adult Medical Transport [phone] Accepts [facility]-patrick with prior authorization. Care Van [phone] Provides wheelchair Transport. [facility] Wide Transportation [phone] Provides gurney service [facility] [phone] Gurney Transport. [facility] Transportation [phone] wheelchair & gurney transport [facility] Transportation [phone] wheelchair & gurney transport [place] Non-Emergency Transport [phone] wheelchair & gurney transport [facility] [phone] Short Term Transportation primarily for adults with disabilities on social security income. Nominal fee may apply and a reservation is required. [facility] Cab [phone] or [phone] [employer] Bay [employer] [facility] [phone] [place] [address] Referral Services -[phone] For additional programs & services VETERANS RESOURCES: Submissions for Aid and Attendance should be done directly to Federal VA office locatd at : [facility] [address] [place] [phone] National Caregiver Support Line [phone] [facility] Veterans Services Field Office [phone] [place] Department of [place] Affairs [phone] Pension Information [phone]
--- NOTE | 2022-03-06 18:21 | NUR ---
PERSONAL BANKING ASSISTANT NOTES: PT DC HOME. PT ALERT AND ORIENTED X3-4 WITH EPISODES OF FORGETFULNESS. NO SOB OR CARDIAC DISTRESS NOTED. DENIES PAIN AT THIS TIME. DISCHARGE INSTRUCTIONS/PACKET AND INSTRUCTION GIVEN TO PT AND VERBALIZED UNDERSTANDING. TRAFFIC ENGINEER SCHEDULED PT FOR FOLLOW UP WITH DR DEL TORO ON MARCH 11, 2022 @ 0930AM, FWW GIVEN TO PT. BELONGINGS CARRIED WITH THE PT. SKIN ISSUES NOTED, PHOTOS TAKEN AND FILED IN HIS CHART. IV ACCESS REMOVED AND IDENTIFICATION BAND REMOVED. PT INITIALLY HAD ARRANGED TRANSPO (YELLOW CAB) AND PT UNABLE TO SIT IN THE BACK SEAT, REARRANGED AGAIN FOR VAN WITH WHEELCHAIR TRANSPO, PT AND PARTNER TWIN REFUSED TO WAIT AN HOUR, THEY DECIDED TO USE THEIR PRIVATE CAR, EXPLAINED THE RISK AND BENEFITS, PT VERBALIZED UNDERSTANDING. RN AND HAT CONDITIONER WHEELED PT IN THE LOBBY AND HELPED PT FOR TRANSFER. PT LEFT THE UNIT STABLE.
== END 2022-03-06 18:15 | disposition home health service (06) | DRG 383 ==
LOC: ER 16:09 → MED 21:24
PROVIDERS: ADMIT Nurse Practitioner Acute Care; ATTEND Internal Medicine
PROC: 0JBP0ZZ Excision of Left Lower Leg Subcutaneous Tissue and Fascia, Open Approach (ICD-10-PCS; principal; 2022-03-05)
PROC: 0JBN0ZZ Excision of Right Lower Leg Subcutaneous Tissue and Fascia, Open Approach (ICD-10-PCS; 2022-03-05)
DX: L03.115 Cellulitis of right lower limb (principal); D63.8 Anemia in other chronic diseases classified elsewhere; L97.919 Non-pressure chronic ulcer of unspecified part of right lower leg with unspecified severity; F20.0 Paranoid schizophrenia; L97.929 Non-pressure chronic ulcer of unspecified part of left lower leg with unspecified severity; I73.9 Peripheral vascular disease, unspecified; B35.1 Tinea unguium; L03.116 Cellulitis of left lower limb; L60.2 Onychogryphosis; Z20.822 Contact with and (suspected) exposure to COVID-19; I87.8 Other specified disorders of veins; W18.30XA Fall on same level, unspecified, initial encounter; Y92.9 Unspecified place or not applicable; R29.6 Repeated falls; Z88.0 Allergy status to penicillin; Z79.899 Other long term (current) drug therapy; F31.9 Bipolar disorder, unspecified; Z73.6 Limitation of activities due to disability; E66.9 Obesity, unspecified; I89.0 Lymphedema, not elsewhere classified; Z68.24 Body mass index [BMI] 24.0-24.9, adult
CPT/HCPCS: 36415; 71045-TC; 80048-TC; 80202-TC; 82247-TC; 82248-TC; 83605-TC; 83735-TC; 84100-TC; 85025-TC; 87040-TC; 87081-TC; 87086-TC; 93970-TC; 97116-TC; 97530-TC; A4217; A6253; A6403; C9803; G0378; J0696; J1200; J1650; J3370; J7030; J7060; Q2036

== ENCOUNTER 2022-03-12 14:30 | Outpatient (CLI) | payer MEDICAID ==
[~2022-03-12 14:30] MED LIST changes: +SULF1TAB48 PO
[2022-03-12] MEDS ORDERED: LIDOCAINE SOLN 4% 50 ML BOTTLE ONE (15:33)
== END 2022-03-12 23:59 | disposition home health service (06) ==
LOC: WOU 14:30
PROVIDERS: ATTEND Podiatrist Foot & Ankle Surgery
DX: I87.313 Chronic venous hypertension (idiopathic) with ulcer of bilateral lower extremity (principal); L97.222 Non-pressure chronic ulcer of left calf with fat layer exposed; L97.212 Non-pressure chronic ulcer of right calf with fat layer exposed; L03.116 Cellulitis of left lower limb; L03.115 Cellulitis of right lower limb; I87.2 Venous insufficiency (chronic) (peripheral); I89.0 Lymphedema, not elsewhere classified
CPT/HCPCS: 11042; 11045

== ENCOUNTER 2024-10-24 23:02 | Inpatient (IN) | payer MEDICAID ==
[~2024-10-24] VITALS: Ht 162.6 cm; Wt 86.7 kg
[2024-10-24] MEDS ORDERED: VANCOMYCIN 1 GM /D5W 250 ML PB IV ONE (23:33)
[2024-10-24] MEDS: VANCOMYCIN 1 GM in IV D5W 250 ML IV ONE (23:35)
[2024-10-24 23:53] LABS: PLATELET COUNT (AUTO) 288 K/uL (150-450); RED BLOOD CELL COUNT(AUTO) 4.46 MIL/uL (4.5-6.0); RED CELL DISTRIBUTION WIDTH 17.3 % (11.5-15.0); WHITE BLOOD COUNT (AUTO) 11.1 K/uL (4.3-11.0)
[2024-10-25 00:04] LABS: CALCIUM, SERUM 9.4 mg/dL (8.5-10.1); CREATININE 1.4 mg/dL (0.6-1.3); INR 0.98 (0.91-1.10); SODIUM SERUM 141 mmol/L (136-145); UREA NITROGEN, BLOOD 29 mg/dL (7-18)
[2024-10-25 00:11] LABS: LACTIC ACID 2.7 mmol/L (0.4-2.0)
[2024-10-25 00:15] LABS: ASPARTATE AMINOTRANSFERASE 19 U/L (15-37); TOTAL PROTEIN, SERUM 8.1 g/dL (6.4-8.2)
[2024-10-25] MEDS ORDERED: ACETAMINOPHEN 325 MG TABLET PO PRN (00:30)
[2024-10-25] MEDS ORDERED: DOSING PER PHARMACY-VANCOMYCIN IV XX PRN (00:30)
[2024-10-25] MEDS ORDERED: MAGNESIUM HYDROXIDE 30 ML UDC PO PRN (00:30)
[2024-10-25] MEDS ORDERED: HYDROCODONE/APAP 5/325MG TABLET PO PRN (00:30)
[2024-10-25] MEDS ORDERED: TEMAZEPAM 15 MG CAPSULE PO PRN (00:30)
[2024-10-25] MEDS ORDERED: MAG HYDROX/AL HYDROX/SIMETH 30 ML UDC PO PRN (00:30)
[2024-10-25] MEDS ORDERED: Z GUARD REMEDY 4 OZ OINT TP PRN (00:30)
[2024-10-25] MEDS ORDERED: MORPHINE SULFATE INJ 2 MG/ML DISP.SYRIN IV PRN (00:30)
[2024-10-25] MEDS ORDERED: ONDANSETRON HCL/PF 4 MG/2 ML VIAL IVP PRN (00:30)
[2024-10-25] MEDS: IV NS 0.9% 1,000 ML BAG IV ONE (01:14)
[2024-10-25 01:42] LABS: APPEARANCE,URINE CLEAR (CLEAR); BLOOD, URINE NEGATIVE Ery/uL (NEGATIVE); LEUKOCYTE ESTERASE ,URINE NEGATIVE (NEGATIVE); NITRITE, URINE NEGATIVE (NEGATIVE); UGLUCOSE NEGATIVE (NEGATIVE)
[2024-10-25] MEDS ORDERED: CEFTRIAXONE 1GM BAG (ER ONLY) 50 ML IV ONE (02:27)
[2024-10-25] MEDS: CEFTRIAXONE 1 G in IV D5W 50 ML IV ONE (02:28)
[2024-10-25 09:00] VITALS: BP 113/48; TEMP 97.7; O2SAT 100
[2024-10-25] MEDS: PANTOPRAZOLE 40 MG TABLET.DR PO SCH (09:16)
[2024-10-25 09:30] VITALS: BP 131/79; TEMP 98.5; O2SAT 97
[2024-10-25] MEDS: VANCOMYCIN HCL 1.25 GM in IV D5W 250 ML IV SCH (11:15)
[2024-10-25 16:25] VITALS: BP 113/64; TEMP 97.6; O2SAT 98
[2024-10-25] MEDS ORDERED: CHLORHEXIDINE GLUCONATE 4% 118 ML BOTTLE TP SCH (17:00)
[2024-10-25 21:07] VITALS: BP 128/62; TEMP 98.1; O2SAT 95
[2024-10-25] MEDS: CEFTRIAXONE 1 G in IV D5W 50 ML IV SCH (21:54)
[2024-10-26 06:56] LABS: PLATELET COUNT (AUTO) 255 K/uL (150-450); RED BLOOD CELL COUNT(AUTO) 4.23 MIL/uL (4.5-6.0); RED CELL DISTRIBUTION WIDTH 17.5 % (11.5-15.0); WHITE BLOOD COUNT (AUTO) 7.6 K/uL (4.3-11.0)
[2024-10-26 07:30] VITALS: BP 114/79; TEMP 97.7; O2SAT 97
[2024-10-26 08:11] LABS: ASPARTATE AMINOTRANSFERASE 23.0 U/L (15-37); CALCIUM, SERUM 8.9 mg/dL (8.5-10.1); CREATININE 1.2 mg/dL (0.6-1.3); PHOSPHORUS 4.0 mg/dL (2.5-4.9); SODIUM SERUM 140.0 mmol/L (136-145); TOTAL PROTEIN, SERUM 7.2 g/dL (6.4-8.2); UREA NITROGEN, BLOOD 18.0 mg/dL (7-18)
[2024-10-26 08:55] LABS: CREATINE KINASE, TOTAL 443.0 U/L (39-308)
[2024-10-26] MEDS: ENSURE ENLIVE 237 ML LIQUID (VANILLA) PO SCH (11:48)
[2024-10-26 16:00] VITALS: BP 124/54; TEMP 97.9; O2SAT 98
[2024-10-26 20:00] VITALS: BP 120/90; TEMP 97.9; O2SAT 99
[2024-10-26] MEDS ORDERED: CEFTRIAXONE 2 G in IV D5W 50 ML IV SCH (21:00)
[2024-10-26] MEDS: CEFTRIAXONE 2 G in IV D5W 100 ML IV SCH (21:10)
[2024-10-27 06:18] LABS: PLATELET COUNT (AUTO) 246 K/uL (150-450); RED BLOOD CELL COUNT(AUTO) 4.06 MIL/uL (4.5-6.0); RED CELL DISTRIBUTION WIDTH 17.2 % (11.5-15.0); WHITE BLOOD COUNT (AUTO) 7.5 K/uL (4.3-11.0)
[2024-10-27 06:27] LABS: CALCIUM, SERUM 8.7 mg/dL (8.5-10.1); CREATININE 1.0 mg/dL (0.6-1.3); SODIUM SERUM 141.0 mmol/L (136-145); UREA NITROGEN, BLOOD 15.0 mg/dL (7-18)
[2024-10-27 06:59] LABS: APPEARANCE,URINE CLEAR (CLEAR); BLOOD, URINE NEGATIVE Ery/uL (NEGATIVE); LEUKOCYTE ESTERASE ,URINE NEGATIVE (NEGATIVE); NITRITE, URINE POSITIVE (NEGATIVE); UGLUCOSE NEGATIVE (NEGATIVE)
[2024-10-27 07:23] LABS: ADD URINE CULTURE YES
[2024-10-27 07:26] LABS: CALCIUM OXALATE CRYSTALS,UR Moderate /HPF (None Seen); SQUAMOUS EPITHELIAL CELL,UR None Seen /HPF (None Seen)
[2024-10-27 07:30] VITALS: BP 126/75; TEMP 98.1; O2SAT 97
[2024-10-27 08:12] LABS: PTH, INTACT 21 pg/mL (15-65)
[2024-10-27 11:41] LABS: CREATININE, URINE 142.3 MG/DL (30.0-125.0); URINE TOTAL PROTEIN 25.5 mg/dL (0-11.9)
[2024-10-27 12:01] LABS: EOSINOPHIL,URINE None Seen
[2024-10-27 16:00] VITALS: BP 120/63; TEMP 97.7; O2SAT 98
[2024-10-27 20:00] VITALS: BP 134/59; TEMP 98.1; O2SAT 96
[2024-10-27 20:39] VITALS: BP 134/59; TEMP 98.1; O2SAT 96
[2024-10-28 06:45] LABS: PLATELET COUNT (AUTO) 264 K/uL (150-450); RED BLOOD CELL COUNT(AUTO) 4.26 MIL/uL (4.5-6.0); RED CELL DISTRIBUTION WIDTH 17.6 % (11.5-15.0); WHITE BLOOD COUNT (AUTO) 6.7 K/uL (4.3-11.0)
[2024-10-28 06:55] LABS: CALCIUM, SERUM 8.4 mg/dL (8.5-10.1); CREATININE 1.0 mg/dL (0.6-1.3); SODIUM SERUM 141.0 mmol/L (136-145); UREA NITROGEN, BLOOD 15.0 mg/dL (7-18)
[2024-10-28 08:42] VITALS: BP 120/70; TEMP 99.1; O2SAT 99
[2024-10-28] MEDS: DAKINS QUARTER STRENGTH (0.125%) 480 ML BOTTLE TOP SCH (11:02)
[2024-10-28 16:16] VITALS: BP 130/65; TEMP 98.2; O2SAT 96
[2024-10-28 20:00] VITALS: BP 133/66; TEMP 97.9; O2SAT 97
[2024-10-28] MEDS: VANCOMYCIN 1 GM in IV D5W 250ml IV SCH (22:35)
[2024-10-28] MEDS ORDERED: VANCOMYCIN 1 GM in IV D5W 250 ML IV SCH (23:00)
[2024-10-29 04:00] VITALS: BP 141/84; TEMP 97.7; O2SAT 98
[2024-10-29 06:59] LABS: CALCIUM, SERUM 9.0 mg/dL (8.5-10.1); CREATININE 1.1 mg/dL (0.6-1.3); SODIUM SERUM 138.0 mmol/L (136-145); UREA NITROGEN, BLOOD 18.0 mg/dL (7-18)
[2024-10-29 07:00] VITALS: BP 145/65; TEMP 98.1; O2SAT 98
[2024-10-29 08:00] VITALS: BP 115/53; TEMP 98.1; O2SAT 94
[2024-10-29 16:00] VITALS: BP 124/52; TEMP 98.1; O2SAT 97
[2024-10-29 20:00] VITALS: BP 115/53; TEMP 98.1; O2SAT 94
[2024-10-29 22:58] VITALS: BP 115/53; TEMP 98.1; O2SAT 94
[2024-10-30 08:00] VITALS: BP 120/65; TEMP 97.5; O2SAT 96
[2024-10-30 08:03] LABS: CALCIUM, SERUM 8.8 mg/dL (8.5-10.1); CREATININE 1.1 mg/dL (0.6-1.3); SODIUM SERUM 140.0 mmol/L (136-145); UREA NITROGEN, BLOOD 21.0 mg/dL (7-18)
[2024-10-30 16:00] VITALS: BP 116/58; TEMP 98.1; O2SAT 98
[2024-10-30 20:00] VITALS: BP 125/47; TEMP 98.1; O2SAT 98
[2024-10-31] MEDS: GUAIFENESIN/D-METHORPHAN HB 5 ML UDC PO PRN (00:51)
[2024-10-31 07:06] LABS: CALCIUM, SERUM 8.6 mg/dL (8.5-10.1); CREATININE 1.1 mg/dL (0.6-1.3); SODIUM SERUM 140.0 mmol/L (136-145); UREA NITROGEN, BLOOD 21.0 mg/dL (7-18)
[2024-10-31 08:00] VITALS: BP 146/100; TEMP 98.2; O2SAT 97
[2024-10-31 16:00] VITALS: BP 100/61; TEMP 97.9; O2SAT 96
[2024-10-31 20:00] VITALS: BP 118/59; TEMP 97.9; O2SAT 96
[2024-11-01 06:35] LABS: CALCIUM, SERUM 9.0 mg/dL (8.5-10.1); CREATININE 1.2 mg/dL (0.6-1.3); SODIUM SERUM 140.0 mmol/L (136-145); UREA NITROGEN, BLOOD 20.0 mg/dL (7-18)
[2024-11-01] MEDS: ARGININE/GLUTAMINE/CALCIUM BMB 1 EACH POWD.PACK PO SCH (09:14)
[2024-11-01] MEDS: NS 0.9% IV SCH (11:53)
[2024-11-01] MEDS: DAPTOMYCIN IV SCH (11:53)
[2024-11-01 16:00] VITALS: BP 131/60; TEMP 99; O2SAT 98
== END 2024-11-01 21:00 | DRG 383 ==
LOC: ER 23:04 → MED 10-25 05:23
PROVIDERS: ADMIT Nurse Practitioner Acute Care; ATTEND Internal Medicine
DX: L03.115 Cellulitis of right lower limb (principal); N17.0 Acute kidney failure with tubular necrosis; E87.20 Acidosis, unspecified; L89.156 Pressure-induced deep tissue damage of sacral region; R78.81 Bacteremia; B96.5 Pseudomonas (aeruginosa) (mallei) (pseudomallei) as the cause of diseases classified elsewhere; B95.2 Enterococcus as the cause of diseases classified elsewhere; E86.0 Dehydration; L03.116 Cellulitis of left lower limb; E66.9 Obesity, unspecified; F20.9 Schizophrenia, unspecified; I73.9 Peripheral vascular disease, unspecified; Z88.0 Allergy status to penicillin; D64.9 Anemia, unspecified; F31.9 Bipolar disorder, unspecified; I87.8 Other specified disorders of veins; N18.9 Chronic kidney disease, unspecified; N39.0 Urinary tract infection, site not specified; B96.4 Proteus (mirabilis) (morganii) as the cause of diseases classified elsewhere; F39 Unspecified mood [affective] disorder; E83.89 Other disorders of mineral metabolism; Z68.32 Body mass index [BMI] 32.0-32.9, adult; L97.429 Non-pressure chronic ulcer of left heel and midfoot with unspecified severity; L97.419 Non-pressure chronic ulcer of right heel and midfoot with unspecified severity; I89.0 Lymphedema, not elsewhere classified
CPT/HCPCS: 36415; 76770-TC; 80048-TC; 80053-TC; 80076-TC; 80202-TC; 81001; 82550-TC; 82553; 82570-TC; 83605-TC; 83735-TC; 83970; 84100-TC; 84155; 84165; 84300-TC; 85025-TC; 85730-TC; 87040-TC; 87070-TC; 87081-TC; 87086-TC; 87186-TC; 93970-TC; 97110-TC; 97112-TC; 97116-TC; 97530-TC; A4223; A6213; A6253; A6403; G0378; J0696; J0878; J3373; J7030; J7050; J7060

== ENCOUNTER 2025-02-09 17:47 | Inpatient (IN) | payer MEDICAID ==
[~2025-02-09] VITALS: Ht 165.1 cm; Wt 81.6 kg
[2025-02-09] MEDS ORDERED: ONDANSETRON HCL/PF 4 MG/2 ML VIAL ONE ×2 (18:47→19:54)
[2025-02-09] MEDS ORDERED: MORPHINE SULFATE INJ 4 MG/ML DISP.SYRIN ONE (18:48)
[2025-02-09] MEDS: ONDANSETRON HCL/PF 4 MG/2 ML VIAL IVP ONE (19:16)
[2025-02-09] MEDS: IV NS 0.9% 500 ML BAG IV ONE (19:16)
[2025-02-09] MEDS: MORPHINE SULFATE INJ 2 MG/ML DISP.SYRIN IV ONE (19:16)
[2025-02-09 19:20] LABS: PLATELET COUNT (AUTO) 223 K/uL (150-450); RED BLOOD CELL COUNT(AUTO) 5.33 MIL/uL (4.5-6.0); RED CELL DISTRIBUTION WIDTH 16.7 % (11.5-15.0); WHITE BLOOD COUNT (AUTO) 9.7 K/uL (4.3-11.0)
[2025-02-09 19:31] LABS: CALCIUM, SERUM 9.5 mg/dL (8.5-10.1); CREATININE 1.0 mg/dL (0.6-1.3); SODIUM SERUM 138 mmol/L (136-145); UREA NITROGEN, BLOOD 21 mg/dL (7-18)
[2025-02-09] MEDS: ONDANSETRON HCL/PF 4 MG/2 ML VIAL IV ONE (19:57)
[2025-02-09] MEDS ORDERED: ONDANSETRON HCL/PF 4 MG/2 ML VIAL IVP PRN (20:30)
[2025-02-09] MEDS ORDERED: ACETAMINOPHEN 325 MG TABLET PO PRN (20:30)
[2025-02-09] MEDS ORDERED: HYDROCODONE/APAP 5/325MG TABLET PO PRN (20:30)
[2025-02-09] MEDS ORDERED: HYDROCODONE/APAP 10/325MG TABLET PO PRN (20:30)
[2025-02-09] MEDS ORDERED: Z GUARD REMEDY 4 OZ OINT TP PRN (20:30)
[2025-02-09] MEDS ORDERED: MAG HYDROX/AL HYDROX/SIMETH 30 ML UDC PO PRN (20:30)
[2025-02-09] MEDS: IV NS 0.9% 1,000 ML IV PRN (22:36)
[2025-02-09] MEDS: TEMAZEPAM 15 MG CAPSULE PO PRN (22:55)
[2025-02-10] MEDS: PANTOPRAZOLE 40 MG TABLET.DR PO SCH (06:32)
[2025-02-10 07:57] LABS: PLATELET COUNT (AUTO) 187 K/uL (150-450); RED BLOOD CELL COUNT(AUTO) 4.42 MIL/uL (4.5-6.0); RED CELL DISTRIBUTION WIDTH 16.6 % (11.5-15.0); WHITE BLOOD COUNT (AUTO) 6.9 K/uL (4.3-11.0)
[2025-02-10 08:00] VITALS: BP 110/69; TEMP 97.4; O2SAT 98
[2025-02-10 09:01] LABS: CALCIUM, SERUM 8.2 mg/dL (8.5-10.1); CREATININE 0.8 mg/dL (0.6-1.3); PHOSPHORUS 3.6 mg/dL (2.5-4.9); SODIUM SERUM 142.0 mmol/L (136-145); UREA NITROGEN, BLOOD 21.0 mg/dL (7-18)
[2025-02-10] MEDS: ENSURE ENLIVE 237 ML LIQUID (VANILLA) PO SCH (11:17)
[2025-02-10 20:00] VITALS: BP 127/74; TEMP 97.7; O2SAT 96
[2025-02-11 08:00] VITALS: BP 133/69; TEMP 98.1; O2SAT 98
[2025-02-11] MEDS: MAGNESIUM HYDROXIDE 30 ML UDC PO PRN (11:28)
[2025-02-11 16:00] VITALS: BP 156/82; TEMP 98.4; O2SAT 98
[2025-02-11 20:00] VITALS: BP 137/74; TEMP 97.7; TEMP 98.1; O2SAT 94; O2SAT 97
[2025-02-12 08:00] VITALS: BP 126/64; TEMP 97.5; O2SAT 97
[2025-02-12 16:00] VITALS: BP 104/66; TEMP 98.4; O2SAT 95
[2025-02-12 20:00] VITALS: BP 135/74; TEMP 98.1; O2SAT 95
[2025-02-13 08:00] VITALS: BP 135/97; TEMP 97.9; O2SAT 98
[2025-02-13 10:00] VITALS: BP 135/97; TEMP 97.9; O2SAT 98
[2025-02-13 16:00] VITALS: BP 135/97; TEMP 97.9; O2SAT 98
== END 2025-02-13 19:52 | disposition home or self-care (01) | DRG 347 ==
LOC: ER 17:57 → MEDSG1 21:17 → MED 21:42
PROVIDERS: ADMIT Nurse Practitioner Acute Care
DX: M54.9 Dorsalgia, unspecified (principal); E66.9 Obesity, unspecified; F31.9 Bipolar disorder, unspecified; I73.9 Peripheral vascular disease, unspecified; Z88.0 Allergy status to penicillin; G89.29 Other chronic pain; Z68.30 Body mass index [BMI] 30.0-30.9, adult
CPT/HCPCS: 36415; 80048-TC; 83735-TC; 84100-TC; 85025-TC; 87081-TC; 97116-TC; 97530-TC; 97535-TC; A4223; G0378; J2270; J2405; J7030; J7040